=== PATIENT | male | born 1990 | race Caucasian/White ===

== ENCOUNTER 2023-06-13 14:33 | Inpatient (IN) | payer OTHER ==
[~2023-06-13] VITALS: Ht 177.8 cm; Wt 130.2 kg
[2023-06-13 15:23] LABS: BASOPHILS % 0.2 % (0.0-2.0); DIFFERENTIAL COMMENT 0; EOSINOPHILS % 0.6 % (0.0-5.0); HEMATOCRIT. 40.9 % (42.0-52.0); HEMOGLOBIN. 13.2 g/dL (14.0-18.0); MEAN CORPUSCULAR HEMOGLOBIN 24.4 pg (28.0-32.0); MEAN CORPUSCULAR HGB CONC 32.2 g/dL (31.0-37.0); MEAN CORPUSCULAR VOLUME 75.9 fL (80.0-94.0); MEAN PLATELET VOLUME 9.1 fl (7.4-10.4); MONOCYTES % 6.3 % (2.0-8.0); NEUTROPHILS % 78.9 % (40.0-76.0); PLATELET 260 x1000/uL (130-400); RED BLOOD CELL COUNT 5.39 mill/uL (4.7-6.1); RED CELL DISTRIBUTION WIDTH 16.3 % (11.6-14.6); WHITE BLOOD COUNT 15.9 x1000/uL (4.5-11.0)
[2023-06-13 15:30] LABS: CHLORIDE 106 mEq/L (98-107); INDEX HEMOLYSI 1 (1-3); INDEX ICTERIC 1 (1-4); INDEX LIPEMIC 1 (1-3); POTASSIUM 3.7 mEq/L (3.5-5.1); SODIUM 138 mEq/L (136-145)
[2023-06-13 15:39] LABS: ALANINE AMINOTRANSFERASE 19 IU/L (13-61); ALBUMIN 3.1 g/dL (3.4-5.0); ASPARTATE AMINOTRANSFERASE 9 IU/L (15-37); BILIRUBIN TOTAL 0.7 mg/dL (0.1-1.0); CARBON DIOXIDE 25 mEq/L (21-32); CREATININE 0.7 mg/dL (0.6-1.3); GLUCOSE 198 mg/dL (70-105); PROTEIN TOTAL 8.1 g/dL (6.0-8.3); UREA NITROGEN BLOOD 9 mg/dL (7-21)
[2023-06-13 20:48] LABS: CLARITY URINE CLOUDY (CLEAR); COLOR URINE DARK YELLOW (YELLOW); GLUCOSE URINE NEGATIVE (NEGATIVE); KETONES URINE 1+ (NEGATIVE); LEUKOCYTE ESTERASE URINE TRACE (NEGATIVE); NITRITE URINE POSITIVE (NEGATIVE); OCCULT BLOOD URINE NEGATIVE (NEGATIVE); PROTEIN URINE 2+ (NEGATIVE); SPECIFIC GRAVITY URINE 1.037 (1.005-1.030)
[2023-06-13 20:51] LABS: SQUAMOUS EPITHELIAL CELL URINE 2+ /lpf (RARE/1+); YEAST URINE NONE SEEN
[2023-06-13 21:21] LABS: BACTERIA URINE TRACE
[2023-06-13] MEDS ORDERED: PIPERACILLIN/TAZ 3.375G PREMIX 50 ML IV ONE (21:30)
[2023-06-13] MEDS ORDERED: DIATR MEGLU/DIATRIZOATE SOLN 120ML ONE (22:48)
[2023-06-13] MEDS ORDERED: PIPERACILLIN/TAZ 3.375G PREMIX 50 ML IV NR (23:00)
[2023-06-14] VITALS (7 sets, daily range): BP systolic 131–149; BP diastolic 72–83; PULSE 102–108; RESP 16–26; TEMP 98.2–98.9
[2023-06-14] MEDS ORDERED: PIPERACILLIN/TAZ 3.375G PREMIX 50 ML IV SCH (12:30)
[2023-06-14] MEDS: PANTOPRAZOLE SODIUM 40 MG/VIAL IV SCH (14:34)
[2023-06-14] MEDS: SODIUM CHLORIDE 0.9% 1,000 ML IV SCH ×2 (14:34→21:39)
[2023-06-14] MEDS: PIPERACILLIN/TAZOBACTAM 3.375G in DEXT 5% WATER 50ML IV SCH ×2 (14:35→21:39)
[2023-06-14] MEDS: ACETAMINOPHEN 325MG TABLET PO PRN (15:11)
[2023-06-14 15:43] LABS: BASOPHILS % 0.3 % (0.0-2.0); DIFFERENTIAL COMMENT 0; EOSINOPHILS % 0.4 % (0.0-5.0); HEMATOCRIT. 38.6 % (42.0-52.0); HEMOGLOBIN. 12.5 g/dL (14.0-18.0); LYMPHOCYTES % 14.6 % (20.0-50.0); MEAN CORPUSCULAR HGB CONC 32.4 g/dL (31.0-37.0); MEAN CORPUSCULAR VOLUME 77.3 fL (80.0-94.0); MEAN PLATELET VOLUME 9.3 fl (7.4-10.4); MONOCYTES % 6.1 % (2.0-8.0); NEUTROPHILS % 78.6 % (40.0-76.0); PLATELET 256 x1000/uL (130-400); RED BLOOD CELL COUNT 4.99 mill/uL (4.7-6.1); RED CELL DISTRIBUTION WIDTH 16.2 % (11.6-14.6); WHITE BLOOD COUNT 15.9 x1000/uL (4.5-11.0)
[2023-06-14 15:55] LABS: CHLORIDE 105 mEq/L (98-107); INDEX HEMOLYSI 1 (1-3); INDEX ICTERIC 1 (1-4); INDEX LIPEMIC 1 (1-3); POTASSIUM 3.7 mEq/L (3.5-5.1); SODIUM 136 mEq/L (136-145)
[2023-06-14 16:03] LABS: ALANINE AMINOTRANSFERASE 18 IU/L (13-61); ALBUMIN 2.6 g/dL (3.4-5.0); ASPARTATE AMINOTRANSFERASE 12 IU/L (15-37); BILIRUBIN TOTAL 0.6 mg/dL (0.1-1.0); CALCIUM 8.9 mg/dL (8.5-10.1); CARBON DIOXIDE 25 mEq/L (21-32); CREATININE 0.7 mg/dL (0.6-1.3); GLUCOSE 180 mg/dL (70-105); PROTEIN TOTAL 7.7 g/dL (6.0-8.3); UREA NITROGEN BLOOD 9 mg/dL (7-21)
[2023-06-15] VITALS (10 sets, daily range): BP systolic 123–147; BP diastolic 69–86; PULSE 70–104; RESP 16–20; TEMP 97.8–98.4
[2023-06-15] MEDS: ACETAMINOPHEN 325MG TABLET PO PRN ×2 (00:43→02:00)
[2023-06-15] MEDS: SODIUM CHLORIDE 0.9% 1,000 ML IV SCH ×3 (04:49→22:13)
[2023-06-15] MEDS: PIPERACILLIN/TAZOBACTAM 3.375G in DEXT 5% WATER 50ML IV SCH ×3 (05:30→22:12)
[2023-06-15 05:59] LABS: BASOPHILS % 0.3 % (0.0-2.0); DIFFERENTIAL COMMENT 0; EOSINOPHILS % 0.9 % (0.0-5.0); HEMATOCRIT. 36.4 % (42.0-52.0); HEMOGLOBIN. 11.6 g/dL (14.0-18.0); MEAN CORPUSCULAR HEMOGLOBIN 24.7 pg (28.0-32.0); MEAN CORPUSCULAR VOLUME 77.1 fL (80.0-94.0); MEAN PLATELET VOLUME 9.9 fl (7.4-10.4); MONOCYTES % 6.7 % (2.0-8.0); NEUTROPHILS % 79.1 % (40.0-76.0); PLATELET 275 x1000/uL (130-400); RED BLOOD CELL COUNT 4.72 mill/uL (4.7-6.1); RED CELL DISTRIBUTION WIDTH 16.6 % (11.6-14.6); WHITE BLOOD COUNT 14.5 x1000/uL (4.5-11.0)
[2023-06-15 07:07] LABS: CHLORIDE 109 mEq/L (98-107); INDEX HEMOLYSI 1 (1-3); INDEX ICTERIC 1 (1-4); INDEX LIPEMIC 1 (1-3); POTASSIUM 3.7 mEq/L (3.5-5.1); SODIUM 138 mEq/L (136-145)
[2023-06-15 07:15] LABS: ALANINE AMINOTRANSFERASE 18 IU/L (13-61); ALBUMIN 2.3 g/dL (3.4-5.0); ASPARTATE AMINOTRANSFERASE 9 IU/L (15-37); BILIRUBIN TOTAL 0.7 mg/dL (0.1-1.0); CALCIUM 7.8 mg/dL (8.5-10.1); CARBON DIOXIDE 23 mEq/L (21-32); CREATININE 0.7 mg/dL (0.6-1.3); GLUCOSE 152 mg/dL (70-105); PROTEIN TOTAL 7.3 g/dL (6.0-8.3); UREA NITROGEN BLOOD 10 mg/dL (7-21)
[2023-06-15] MEDS: PANTOPRAZOLE SODIUM 40 MG/VIAL IV SCH (08:26)
[2023-06-16] VITALS: BP 141/77; PULSE 93; RESP 18; TEMP 98.9
[2023-06-16 04:00] VITALS: BP 146/82; PULSE 88; RESP 18; TEMP 98.6
[2023-06-16] MEDS: SODIUM CHLORIDE 0.9% 1,000 ML IV SCH ×3 (05:34→21:06)
[2023-06-16] MEDS: PIPERACILLIN/TAZOBACTAM 3.375G in DEXT 5% WATER 50ML IV SCH ×3 (05:34→21:07)
[2023-06-16 08:00] VITALS: BP 156/85; PULSE 95; RESP 20; TEMP 98
[2023-06-16 08:01] LABS: BASOPHILS % 0.4 % (0.0-2.0); DIFFERENTIAL COMMENT 0; EOSINOPHILS % 1.6 % (0.0-5.0); HEMOGLOBIN. 12.2 g/dL (14.0-18.0); LYMPHOCYTES % 16.7 % (20.0-50.0); MEAN CORPUSCULAR HEMOGLOBIN 24.9 pg (28.0-32.0); MEAN PLATELET VOLUME 9.5 fl (7.4-10.4); MONOCYTES % 6.1 % (2.0-8.0); NEUTROPHILS % 75.2 % (40.0-76.0); PLATELET 338 x1000/uL (130-400); RED BLOOD CELL COUNT 4.87 mill/uL (4.7-6.1); RED CELL DISTRIBUTION WIDTH 16.5 % (11.6-14.6); WHITE BLOOD COUNT 13.7 x1000/uL (4.5-11.0)
[2023-06-16 08:38] LABS: CHLORIDE 109 mEq/L (98-107); INDEX HEMOLYSI 1 (1-3); INDEX ICTERIC 1 (1-4); INDEX LIPEMIC 1 (1-3); POTASSIUM 3.9 mEq/L (3.5-5.1); SODIUM 138 mEq/L (136-145)
[2023-06-16 08:47] LABS: ALANINE AMINOTRANSFERASE 33 IU/L (13-61); ALBUMIN 2.4 g/dL (3.4-5.0); ASPARTATE AMINOTRANSFERASE 36 IU/L (15-37); BILIRUBIN TOTAL 0.7 mg/dL (0.1-1.0); CALCIUM 8.7 mg/dL (8.5-10.1); CARBON DIOXIDE 23 mEq/L (21-32); CREATININE 0.7 mg/dL (0.6-1.3); GLUCOSE 122 mg/dL (70-105); PROTEIN TOTAL 7.9 g/dL (6.0-8.3); UREA NITROGEN BLOOD 9 mg/dL (7-21)
[2023-06-16] MEDS: PANTOPRAZOLE SODIUM 40 MG/VIAL IV SCH (09:08)
[2023-06-16 12:00] VITALS: BP 149/87; PULSE 104; RESP 20; TEMP 97.6
[2023-06-16 16:00] VITALS: BP 163/75; PULSE 110; RESP 20; TEMP 97.4
[2023-06-16 20:00] VITALS: BP 150/84; PULSE 129; RESP 21; TEMP 98.2
[2023-06-16] MEDS ORDERED: DIATR MEGLU/DIATRIZOATE SOLN 30ML PO SCH (23:30)
[2023-06-17] VITALS: BP 140/83; PULSE 118; RESP 21; TEMP 97.5
[2023-06-17 04:00] VITALS: BP 142/88; PULSE 103; RESP 19; TEMP 98.5
[2023-06-17] MEDS: SODIUM CHLORIDE 0.9% 1,000 ML IV SCH ×3 (05:37→22:21)
[2023-06-17] MEDS: PIPERACILLIN/TAZOBACTAM 3.375G in DEXT 5% WATER 50ML IV SCH ×3 (05:37→22:21)
[2023-06-17 06:18] LABS: BASOPHILS % 0.3 % (0.0-2.0); DIFFERENTIAL COMMENT 0; EOSINOPHILS % 0.1 % (0.0-5.0); HEMATOCRIT. 39.8 % (42.0-52.0); LYMPHOCYTES % 8.8 % (20.0-50.0); MEAN CORPUSCULAR HEMOGLOBIN 25.1 pg (28.0-32.0); MEAN CORPUSCULAR HGB CONC 32.6 g/dL (31.0-37.0); MEAN PLATELET VOLUME 9.5 fl (7.4-10.4); NEUTROPHILS % 84.8 % (40.0-76.0); PLATELET 377 x1000/uL (130-400); RED BLOOD CELL COUNT 5.17 mill/uL (4.7-6.1); RED CELL DISTRIBUTION WIDTH 16.3 % (11.6-14.6); WHITE BLOOD COUNT 16.2 x1000/uL (4.5-11.0)
[2023-06-17 07:59] LABS: CALCIUM 7.8 mg/dL (8.5-10.1); CARBON DIOXIDE 21 mEq/L (21-32); CHLORIDE 108 mEq/L (98-107); GLUCOSE 160 mg/dL (70-105); INDEX HEMOLYSI 1 (1-3); INDEX ICTERIC 1 (1-4); INDEX LIPEMIC 1 (1-3); POTASSIUM 4.1 mEq/L (3.5-5.1); SODIUM 138 mEq/L (136-145); UREA NITROGEN BLOOD 9 mg/dL (7-21)
[2023-06-17 08:00] VITALS: BP 156/87; PULSE 110; RESP 16; TEMP 97.9
[2023-06-17 08:04] LABS: ALANINE AMINOTRANSFERASE 42 IU/L (13-61); ASPARTATE AMINOTRANSFERASE 27 IU/L (15-37); BILIRUBIN TOTAL 1.3 mg/dL (0.1-1.0); CREATININE 0.7 mg/dL (0.6-1.3); PROTEIN TOTAL 7.2 g/dL (6.0-8.3)
[2023-06-17] MEDS: FAMOTIDINE 20MG TABLET PO SCH ×2 (08:12→20:46)
[2023-06-17] MEDS: ACETAMINOPHEN 325MG TABLET PO PRN (08:13)
[2023-06-17] MEDS: MORPHINE SULFATE 2 MG/ML CPJ (NOT FOR IM USE) IV PRN ×3 (09:48→20:35)
[2023-06-17 12:00] VITALS: BP 170/90; PULSE 119; RESP 18; TEMP 98.4
[2023-06-17] MEDS ORDERED: DIATR MEGLU/DIATRIZOATE SOLN 30ML PO SCH (12:00)
[2023-06-17] MEDS ORDERED: NALOXONE HCL 0.4MG/ML VIAL IV PRN (12:45)
[2023-06-17] MEDS ORDERED: DIATR MEGLU/DIATRIZOATE SOLN 30ML PO ONE (13:30)
[2023-06-17 16:00] VITALS: BP 154/89; PULSE 133; RESP 18; TEMP 98.7
[2023-06-17] MEDS ORDERED: IOHEXOL-300 100 ML BOTTLE ONE (19:26)
[2023-06-17 20:00] VITALS: BP 142/83; PULSE 132; RESP 18; TEMP 99.1
[2023-06-17] MEDS: ENOXAPARIN 40MG/0.4ML SYR SUBCUT SCH (20:46)
[2023-06-17] MEDS: MICAFUNGIN 100 MG in SODIUM CHLORIDE 0.9% 100 ML IV SCH (20:47)
[2023-06-17] MEDS ORDERED: DILTIAZEM HCL 5MG/ML 5ML VIAL IV NR (22:45)
[2023-06-18] VITALS (19 sets, daily range): BP systolic 108–168; BP diastolic 68–96; PULSE 93–146; RESP 18–42; TEMP 96.6–100.4
[2023-06-18] MEDS: MORPHINE SULFATE 2 MG/ML CPJ (NOT FOR IM USE) IV PRN ×4 (00:28→20:23)
[2023-06-18] MEDS ORDERED: ACETAMINOPHEN 650MG SUPP RC PRN (04:15)
[2023-06-18] MEDS: SODIUM CHLORIDE 0.9% 1,000 ML IV SCH ×3 (04:15→20:28)
[2023-06-18] MEDS: PIPERACILLIN/TAZOBACTAM 3.375G in DEXT 5% WATER 50ML IV SCH ×3 (05:09→22:34)
[2023-06-18 05:46] LABS: HEMATOCRIT. 41.2 % (42.0-52.0); HEMOGLOBIN. 13.4 g/dL (14.0-18.0); MEAN CORPUSCULAR HEMOGLOBIN 25.1 pg (28.0-32.0); MEAN CORPUSCULAR HGB CONC 32.6 g/dL (31.0-37.0); MEAN PLATELET VOLUME 9.4 fl (7.4-10.4); PLATELET 405 x1000/uL (130-400); RED BLOOD CELL COUNT 5.35 mill/uL (4.7-6.1); RED CELL DISTRIBUTION WIDTH 16.6 % (11.6-14.6); WHITE BLOOD COUNT 20.1 x1000/uL (4.5-11.0)
[2023-06-18 06:40] LABS: DIFFERENTIAL COMMENT 1
[2023-06-18 07:59] LABS: CHLORIDE 109 mEq/L (98-107); INDEX HEMOLYSI 2 (1-3); INDEX ICTERIC 1 (1-4); INDEX LIPEMIC 1 (1-3); POTASSIUM 3.8 mEq/L (3.5-5.1); SODIUM 137 mEq/L (136-145)
[2023-06-18 08:08] LABS: ALANINE AMINOTRANSFERASE 26 IU/L (13-61); ASPARTATE AMINOTRANSFERASE 15 IU/L (15-37); BILIRUBIN TOTAL 1.4 mg/dL (0.1-1.0); CALCIUM 8.4 mg/dL (8.5-10.1); CARBON DIOXIDE 20 mEq/L (21-32); CREATININE 0.7 mg/dL (0.6-1.3); GLUCOSE 213 mg/dL (70-105); PROTEIN TOTAL 7.2 g/dL (6.0-8.3); UREA NITROGEN BLOOD 11 mg/dL (7-21)
[2023-06-18] MEDS: FAMOTIDINE 20MG TABLET PO SCH ×2 (08:12→20:29)
[2023-06-18] MEDS: ENOXAPARIN 40MG/0.4ML SYR SUBCUT SCH ×2 (08:46→20:30)
[2023-06-18] MEDS ORDERED: SODIUM BICARBONATE 4% (2.4MEQ) 5ML VIAL IV ONE (09:08)
[2023-06-18] MEDS ORDERED: LIDOCAINE HCL 1% 10 MG/ML 10ML VIAL ONE (09:08)
[2023-06-18 09:22] LABS: INR 1.2; PROTHROMBIN TIME 12.8 sec (9.6-11.0)
[2023-06-18 10:19] LABS: ALBUMIN 1.9 g/dL (3.4-5.0)
[2023-06-18] MEDS ORDERED: FENTANYL CITRATE/PF 50MCG/ML 2ML VIAL ONE (13:02)
[2023-06-18] MEDS ORDERED: FENTANYL CITRATE/PF 50MCG/ML 2ML VIAL IV NR (14:30)
[2023-06-18 18:03] LABS: MICROCYTOSIS 1+; PLATELET ESTIMATE INCREASED
[2023-06-18] MEDS: MICAFUNGIN 100 MG in SODIUM CHLORIDE 0.9% 100 ML IV SCH (20:27)
[2023-06-19] VITALS: BP 110/77; PULSE 132; RESP 20; TEMP 100
[2023-06-19] MEDS: MORPHINE SULFATE 2 MG/ML CPJ (NOT FOR IM USE) IV PRN ×4 (01:38→21:14)
[2023-06-19 04:00] VITALS: BP 138/86; PULSE 137; RESP 20; TEMP 99.3
[2023-06-19] MEDS: SODIUM CHLORIDE 0.9% 1,000 ML IV SCH ×4 (04:15→20:40)
[2023-06-19] MEDS: PIPERACILLIN/TAZOBACTAM 3.375G in DEXT 5% WATER 50ML IV SCH (05:13)
[2023-06-19 07:18] LABS: CHLORIDE 109 mEq/L (98-107); INDEX HEMOLYSI 1 (1-3); INDEX ICTERIC 1 (1-4); INDEX LIPEMIC 1 (1-3); SODIUM 139 mEq/L (136-145)
[2023-06-19 07:27] LABS: ALANINE AMINOTRANSFERASE 25 IU/L (13-61); ASPARTATE AMINOTRANSFERASE 20 IU/L (15-37); BILIRUBIN DIRECT 0.9 mg/dL (0.0-0.2); BILIRUBIN TOTAL 1.6 mg/dL (0.1-1.0); CARBON DIOXIDE 24 mEq/L (21-32); GLUCOSE 301 mg/dL (70-105); PHOSPHORUS 1.6 mg/dL (2.5-4.9); UREA NITROGEN BLOOD 23 mg/dL (7-21)
[2023-06-19 07:28] LABS: ALBUMIN 1.7 g/dL (3.4-5.0)
[2023-06-19 07:41] LABS: HEMATOCRIT. 44.2 % (42.0-52.0); HEMOGLOBIN. 14.3 g/dL (14.0-18.0); MEAN CORPUSCULAR HEMOGLOBIN 25.1 pg (28.0-32.0); MEAN CORPUSCULAR HGB CONC 32.5 g/dL (31.0-37.0); MEAN CORPUSCULAR VOLUME 77.3 fL (80.0-94.0); MEAN PLATELET VOLUME 9.1 fl (7.4-10.4); PLATELET 420 x1000/uL (130-400); RED BLOOD CELL COUNT 5.72 mill/uL (4.7-6.1); RED CELL DISTRIBUTION WIDTH 16.7 % (11.6-14.6); WHITE BLOOD COUNT 18.2 x1000/uL (4.5-11.0)
[2023-06-19 08:00] VITALS: BP 137/59; PULSE 87; RESP 18; TEMP 97.3
[2023-06-19 08:18] LABS: DIFFERENTIAL COMMENT 1
[2023-06-19] MEDS: FAMOTIDINE 20MG TABLET PO SCH ×2 (09:00→20:38)
[2023-06-19] MEDS ORDERED: LIDOCAINE HCL 1% 10 MG/ML 10ML VIAL ONE (09:11)
[2023-06-19 11:20] LABS: HEPATITIS B SURFACE ANTIGEN NEGATIVE
[2023-06-19 11:45] LABS: HEPATITIS B CORE AB IGM NEGATIVE; HEPATITIS C VIR.AB 0.06 INDEXVAL (0.00-0.80)
[2023-06-19 11:48] LABS: HEPATITIS A AB IGM NEGATIVE (NEGATIVE)
[2023-06-19 12:00] VITALS: BP 143/84; PULSE 135; RESP 18; TEMP 97.1
[2023-06-19] MEDS: ENOXAPARIN 40MG/0.4ML SYR SUBCUT SCH ×2 (13:27→20:40)
[2023-06-19 13:33] LABS: PLATELET ESTIMATE SLIGHTLY INCREASED
[2023-06-19 13:35] LABS: MICROCYTOSIS 1+
[2023-06-19 13:46] LABS: PREALBUMIN < 3.0 mg/dL (20.0-40.0)
[2023-06-19 16:00] VITALS: BP 155/93; PULSE 131; RESP 16; TEMP 97.3
[2023-06-19 20:00] VITALS: BP 137/90; PULSE 134; RESP 20; TEMP 97.6
[2023-06-19] MEDS: MICAFUNGIN 100 MG in SODIUM CHLORIDE 0.9% 100 ML IV SCH (20:39)
[2023-06-20] VITALS: BP 151/81; PULSE 125; RESP 20; TEMP 97.7
[2023-06-20 04:00] VITALS: BP 137/83; PULSE 133; RESP 20; TEMP 97.8
[2023-06-20] MEDS: CEFEPIME 2,000 MG in DEXT 5% WATER 100 ML IV SCH ×2 (05:10→12:19)
[2023-06-20] MEDS: SODIUM CHLORIDE 0.9% 1,000 ML IV SCH ×3 (05:29→20:30)
[2023-06-20] MEDS: VANCOMYCIN 2,000 MG in DEXT 5% WATER 500 ML IV SCH ×2 (05:30→08:42)
[2023-06-20 07:25] LABS: HEMATOCRIT. 39.9 % (42.0-52.0); HEMOGLOBIN. 12.4 g/dL (14.0-18.0); MEAN CORPUSCULAR HEMOGLOBIN 24.3 pg (28.0-32.0); MEAN CORPUSCULAR HGB CONC 31.1 g/dL (31.0-37.0); MEAN CORPUSCULAR VOLUME 78.3 fL (80.0-94.0); MEAN PLATELET VOLUME 10.5 fl (7.4-10.4); PLATELET 384 x1000/uL (130-400); RED CELL DISTRIBUTION WIDTH 17.6 % (11.6-14.6); WHITE BLOOD COUNT 22.1 x1000/uL (4.5-11.0)
[2023-06-20 07:47] LABS: DIFFERENTIAL COMMENT 1
[2023-06-20 08:00] VITALS: BP 152/70; PULSE 145; RESP 20; TEMP 97.6
[2023-06-20] MEDS: ENOXAPARIN 40MG/0.4ML SYR SUBCUT SCH ×2 (08:43→20:33)
[2023-06-20] MEDS: FAMOTIDINE 20MG TABLET PO SCH ×2 (08:43→21:00)
[2023-06-20] MEDS ORDERED: DEXTROSE 50% WATER 50ML SYRINGE IV PRN (11:00)
[2023-06-20 12:00] VITALS: BP 148/90; PULSE 145; RESP 18; TEMP 97.2
[2023-06-20] MEDS: BLOOD SUGAR DIAGNOSTIC STRIP TEST SCH ×3 (12:19→20:34)
[2023-06-20 12:32] LABS: CHLORIDE 108 mEq/L (98-107); INDEX HEMOLYSI 1 (1-3); INDEX ICTERIC 1 (1-4); INDEX LIPEMIC 1 (1-3); POTASSIUM 4.5 mEq/L (3.5-5.1); SODIUM 137 mEq/L (136-145)
[2023-06-20 12:39] LABS: CALCIUM 8.2 mg/dL (8.5-10.1); CARBON DIOXIDE 22 mEq/L (21-32); PHOSPHORUS 1.4 mg/dL (2.5-4.9); UREA NITROGEN BLOOD 33 mg/dL (7-21)
[2023-06-20] MEDS: INSULIN LISPRO 100 UNITS/ML SUBCUT SCH ×3 (12:39→20:34)
[2023-06-20] MEDS ORDERED: DILTIAZEM HCL 5MG/ML 5ML VIAL IV NR (13:30)
[2023-06-20 14:22] LABS: GLUCOSE 419 mg/dL (70-105)
[2023-06-20 14:24] LABS: ANISOCYTOSIS 1+; MICROCYTOSIS 1+; PLATELET ESTIMATE NORMAL
[2023-06-20 16:00] VITALS: BP 135/75; PULSE 138; RESP 18; TEMP 97.5
[2023-06-20 16:50] LABS: *AMPHETAMINES SCREEN URINE NEGATIVE (NEGATIVE); *BARBITURATES SCREEN URINE NEGATIVE (NEGATIVE); *BENZODIAZEPINES SCREEN URINE NEGATIVE (NEGATIVE); *COCAINE SCREEN URINE NEGATIVE (NEGATIVE); CANNABINOID URINE SCREEN NEGATIVE (NEGATIVE); ECSTASY MDMA SCREEN URINE NEGATIVE (NEGATIVE); OPIATES URINE SCREEN PRESUMTIVE POSITIVE (NEGATIVE); PHENCYCLIDINE URINE SCREEN NEGATIVE (NEGATIVE)
[2023-06-20 17:01] LABS: METHADONE URINE SCREEN INVALID (NEGATIVE)
[2023-06-20] MEDS ORDERED: INSULIN LISPRO 100 UNITS/ML SUBCUT NR (17:30)
[2023-06-20 17:48] LABS: T4 FREE 0.95 ng/dL (0.76-1.46)
[2023-06-20 19:55] LABS: CHLORIDE 109 mEq/L (98-107); INDEX HEMOLYSI 1 (1-3); INDEX ICTERIC 1 (1-4); INDEX LIPEMIC 1 (1-3); POTASSIUM 4.6 mEq/L (3.5-5.1); SODIUM 138 mEq/L (136-145)
[2023-06-20 19:57] LABS: CARBON DIOXIDE 23 mEq/L (21-32)
[2023-06-20 20:00] VITALS: BP 140/92; PULSE 134; RESP 20; TEMP 97.3
[2023-06-20 20:00] LABS: UREA NITROGEN BLOOD 37 mg/dL (7-21)
[2023-06-20 20:03] LABS: BETA HYDROXYBUTYRATE 0.4 mMol/L (0.0-0.3); CREATININE 1.3 mg/dL (0.6-1.3)
[2023-06-20 20:25] LABS: GLUCOSE 406 mg/dL (70-105)
[2023-06-20] MEDS: MICAFUNGIN 100 MG in SODIUM CHLORIDE 0.9% 100 ML IV SCH (20:30)
[2023-06-20] MEDS: METOPROLOL TARTRATE 50MG TABLET PO SCH (21:00)
[2023-06-20] MEDS: METOPROLOL TARTRATE 5MG/5ML VIAL IV PRN (21:17)
[2023-06-20] MEDS: AMPICILLIN SOD/SULBACTAM NA 3 G in SODIUM CHLORIDE 0.9% 100 ML IV SCH (21:41)
[2023-06-21] VITALS: BP 145/76; PULSE 122; RESP 20; TEMP 97.6
[2023-06-21] MEDS: AMPICILLIN SOD/SULBACTAM NA 3 G in SODIUM CHLORIDE 0.9% 100 ML IV SCH ×4 (01:53→20:44)
[2023-06-21] MEDS: METOPROLOL TARTRATE 5MG/5ML VIAL IV PRN ×4 (01:54→16:50)
[2023-06-21] MEDS: MORPHINE SULFATE 2 MG/ML CPJ (NOT FOR IM USE) IV PRN (02:03)
[2023-06-21 04:00] VITALS: BP 136/77; PULSE 109; RESP 18; TEMP 97.7
[2023-06-21] MEDS: BLOOD SUGAR DIAGNOSTIC STRIP TEST SCH ×4 (05:32→20:31)
[2023-06-21] MEDS: INSULIN LISPRO 100 UNITS/ML SUBCUT SCH ×5 (05:59→20:43)
[2023-06-21] MEDS: ONDANSETRON HCL 4MG/2ML INJ IV PRN (06:09)
[2023-06-21 06:39] LABS: HEMATOCRIT. 36.9 % (42.0-52.0); HEMOGLOBIN. 11.7 g/dL (14.0-18.0); MEAN CORPUSCULAR HEMOGLOBIN 24.3 pg (28.0-32.0); MEAN CORPUSCULAR HGB CONC 31.8 g/dL (31.0-37.0); MEAN CORPUSCULAR VOLUME 76.3 fL (80.0-94.0); MEAN PLATELET VOLUME 10.1 fl (7.4-10.4); PLATELET 345 x1000/uL (130-400); RED BLOOD CELL COUNT 4.84 mill/uL (4.7-6.1); RED CELL DISTRIBUTION WIDTH 17.1 % (11.6-14.6)
[2023-06-21 07:00] LABS: DIFFERENTIAL COMMENT 1
[2023-06-21 07:12] LABS: CHLORIDE 113 mEq/L (98-107); INDEX HEMOLYSI 1 (1-3); INDEX ICTERIC 1 (1-4); INDEX LIPEMIC 1 (1-3); POTASSIUM 4.6 mEq/L (3.5-5.1); SODIUM 142 mEq/L (136-145)
[2023-06-21 07:28] LABS: CARBON DIOXIDE 22 mEq/L (21-32); CREATININE 1.3 mg/dL (0.6-1.3); GLUCOSE 344 mg/dL (70-105); UREA NITROGEN BLOOD 37 mg/dL (7-21)
[2023-06-21 08:00] VITALS: BP 150/90; PULSE 134; RESP 20; TEMP 97.8
[2023-06-21] MEDS ORDERED: IOHEXOL-350 100 ML BOTTLE ONE (08:35)
[2023-06-21] MEDS ORDERED: IOHEXOL-300 50 ML BOTTLE IV ONE (08:35)
[2023-06-21] MEDS: FAMOTIDINE 20MG TABLET PO SCH ×2 (09:00→20:44)
[2023-06-21] MEDS: METOPROLOL TARTRATE 50MG TABLET PO SCH ×2 (09:00→20:44)
[2023-06-21] MEDS: ENOXAPARIN 40MG/0.4ML SYR SUBCUT SCH ×2 (09:23→20:43)
[2023-06-21] MEDS ORDERED: METOPROLOL TARTRATE 50MG TABLET PO SCH (10:15)
[2023-06-21 10:46] LABS: CLARITY URINE TURBID (CLEAR); COLOR URINE DARK YELLOW (YELLOW); GLUCOSE URINE 3+ (NEGATIVE); KETONES URINE TRACE (NEGATIVE); LEUKOCYTE ESTERASE URINE NEGATIVE (NEGATIVE); NITRITE URINE NEGATIVE (NEGATIVE); OCCULT BLOOD URINE 1+ (NEGATIVE); PROTEIN URINE 2+ (NEGATIVE); SPECIFIC GRAVITY URINE 1.035 (1.005-1.030)
[2023-06-21 11:09] LABS: COARSE GRANULAR CASTS URINE 0-5 /lpf; SQUAMOUS EPITHELIAL CELL URINE 1+ /lpf (RARE/1+); WBC URINE 0-2 /hpf (0-2)
[2023-06-21 11:10] LABS: BACTERIA URINE 2+; RBC URINE 0-2 /hpf (0-2)
[2023-06-21 12:00] VITALS: BP 141/78; PULSE 124; RESP 20; TEMP 97.2
[2023-06-21 16:00] VITALS: BP 135/88; PULSE 139; RESP 20; TEMP 97.8
[2023-06-21] MEDS: DEXT 5%/0.9% NACL KCL 20MEQ/L 1,000 ML IV SCH (16:50)
[2023-06-21 17:36] LABS: MICROCYTOSIS 1+
[2023-06-21 17:37] LABS: HYPOCHROMASIA 1+
[2023-06-21 17:38] LABS: PLATELET ESTIMATE NORMAL
[2023-06-21 20:00] VITALS: BP 156/91; PULSE 139; RESP 20; TEMP 97.2
[2023-06-21] MEDS: MICAFUNGIN 100 MG in SODIUM CHLORIDE 0.9% 100 ML IV SCH (20:44)
[2023-06-21] MEDS ORDERED: INSULIN GLARGINE 100 UNITS/ML SUBCUT SCH (22:00)
[2023-06-22] VITALS (16 sets, daily range): BP systolic 122–151; BP diastolic 70–84; PULSE 108–138; RESP 18–26; TEMP 97.5–98
[2023-06-22] MEDS: INSULIN LISPRO 100 UNITS/ML SUBCUT SCH ×7 (00:41→21:49)
[2023-06-22] MEDS: AMPICILLIN SOD/SULBACTAM NA 3 G in SODIUM CHLORIDE 0.9% 100 ML IV SCH ×2 (02:38→10:00)
[2023-06-22] MEDS: DEXT 5%/0.9% NACL KCL 20MEQ/L 1,000 ML IV SCH ×2 (06:24→20:37)
[2023-06-22] MEDS: BLOOD SUGAR DIAGNOSTIC STRIP TEST SCH ×4 (06:51→21:07)
[2023-06-22 07:21] LABS: HEMATOCRIT. 35.2 % (42.0-52.0); HEMOGLOBIN. 11.2 g/dL (14.0-18.0); MEAN CORPUSCULAR HEMOGLOBIN 24.6 pg (28.0-32.0); MEAN CORPUSCULAR HGB CONC 31.8 g/dL (31.0-37.0); MEAN CORPUSCULAR VOLUME 77.2 fL (80.0-94.0); MEAN PLATELET VOLUME 11.1 fl (7.4-10.4); PLATELET 273 x1000/uL (130-400); RED BLOOD CELL COUNT 4.55 mill/uL (4.7-6.1); WHITE BLOOD COUNT 17.4 x1000/uL (4.5-11.0)
[2023-06-22 07:34] LABS: DIFFERENTIAL COMMENT 1
[2023-06-22 07:48] LABS: POTASSIUM 4.9 mEq/L (3.5-5.1)
[2023-06-22 07:58] LABS: CALCIUM 7.6 mg/dL (8.5-10.1); CREATININE 1.5 mg/dL (0.6-1.3); PHOSPHORUS 2.8 mg/dL (2.5-4.9)
[2023-06-22] MEDS: METOPROLOL TARTRATE 50MG TABLET PO SCH ×2 (09:35→21:47)
[2023-06-22] MEDS: FAMOTIDINE 20MG TABLET PO SCH ×2 (09:35→21:47)
[2023-06-22] MEDS: ENOXAPARIN 40MG/0.4ML SYR SUBCUT SCH ×2 (09:48→21:48)
[2023-06-22] MEDS: INSULIN GLARGINE 100 UNITS/ML SUBCUT SCH ×2 (12:15→21:50)
[2023-06-22 12:19] LABS: ANISOCYTOSIS 1+; PLATELET ESTIMATE NORMAL
[2023-06-22 12:20] LABS: MICROCYTOSIS 1+
[2023-06-22] MEDS ORDERED: LIDOCAINE HCL 1% 10 MG/ML 10ML VIAL ONE (12:40)
[2023-06-22] MEDS ORDERED: FENTANYL CITRATE/PF 50MCG/ML 2ML VIAL ONE (13:11)
[2023-06-22] MEDS ORDERED: FENTANYL CITRATE/PF 50MCG/ML 2ML VIAL IV ONE (13:45)
[2023-06-22] MEDS: PIPERACILLIN/TAZOBACTAM 3.375 G in DEXTROSE 5% WATER 50 ML IV SCH ×2 (16:50→23:06)
[2023-06-22] MEDS: MICAFUNGIN 100 MG in SODIUM CHLORIDE 0.9% 100 ML IV SCH (21:45)
[2023-06-23] VITALS: BP 129/77; PULSE 107; RESP 18; TEMP 98.1
[2023-06-23] MEDS: MORPHINE SULFATE 2 MG/ML CPJ (NOT FOR IM USE) IV PRN ×2 (00:51→12:34)
[2023-06-23] MEDS: INSULIN LISPRO 100 UNITS/ML SUBCUT SCH ×7 (00:59→22:38)
[2023-06-23 04:00] VITALS: BP 132/81; PULSE 106; RESP 18; TEMP 97.7
[2023-06-23 05:38] LABS: BASOPHILS % 0.2 % (0.0-2.0); DIFFERENTIAL COMMENT 0; HEMATOCRIT. 33.1 % (42.0-52.0); HEMOGLOBIN. 10.4 g/dL (14.0-18.0); LYMPHOCYTES % 7.1 % (20.0-50.0); MEAN CORPUSCULAR HEMOGLOBIN 24.3 pg (28.0-32.0); MEAN CORPUSCULAR HGB CONC 31.5 g/dL (31.0-37.0); MEAN CORPUSCULAR VOLUME 77.3 fL (80.0-94.0); MEAN PLATELET VOLUME 11.1 fl (7.4-10.4); MONOCYTES % 9.1 % (2.0-8.0); NEUTROPHILS % 83.6 % (40.0-76.0); PLATELET 286 x1000/uL (130-400); RED BLOOD CELL COUNT 4.28 mill/uL (4.7-6.1); RED CELL DISTRIBUTION WIDTH 17.3 % (11.6-14.6); WHITE BLOOD COUNT 12.9 x1000/uL (4.5-11.0)
[2023-06-23] MEDS: BLOOD SUGAR DIAGNOSTIC STRIP TEST SCH ×4 (06:37→21:00)
[2023-06-23] MEDS: PIPERACILLIN/TAZOBACTAM 3.375 G in DEXTROSE 5% WATER 50 ML IV SCH ×3 (06:48→22:00)
[2023-06-23 07:04] LABS: POTASSIUM 4.7 mEq/L (3.5-5.1)
[2023-06-23 07:11] LABS: CALCIUM 7.5 mg/dL (8.5-10.1); CREATININE 1.6 mg/dL (0.6-1.3)
[2023-06-23] MEDS: FAMOTIDINE 20MG TABLET PO SCH ×2 (09:29→22:34)
[2023-06-23] MEDS: INSULIN GLARGINE 100 UNITS/ML SUBCUT SCH ×2 (09:30→22:39)
[2023-06-23] MEDS: ENOXAPARIN 40MG/0.4ML SYR SUBCUT SCH ×2 (09:30→22:35)
[2023-06-23] MEDS: DEXT 5%/0.9% NACL KCL 20MEQ/L 1,000 ML IV SCH ×2 (09:31→22:35)
[2023-06-23] MEDS: METOPROLOL TARTRATE 50MG TABLET PO SCH (09:33)
[2023-06-23 12:00] VITALS: BP 135/65; PULSE 118; RESP 22; TEMP 102.7
[2023-06-23] MEDS: ACETAMINOPHEN 325MG TABLET PO PRN ×2 (12:35→22:33)
[2023-06-23 16:00] VITALS: BP 135/55; PULSE 119; RESP 18; TEMP 99.5
[2023-06-23] MEDS: ONDANSETRON HCL 4MG/2ML INJ IV PRN (17:04)
[2023-06-23] MEDS ORDERED: NALOXONE HCL 0.4MG/ML VIAL IV PRN (18:30)
[2023-06-23 20:00] VITALS: BP 118/73; PULSE 121; RESP 20; TEMP 97.7
[2023-06-23] MEDS: METOPROLOL TARTRATE 100MG TABLET PO SCH (22:36)
[2023-06-24] VITALS (23 sets, daily range): BP systolic 105–139; BP diastolic 46–89; PULSE 106–126; RESP 15–48; TEMP 96.9–100.2
[2023-06-24] MEDS: ONDANSETRON HCL 4MG/2ML INJ IV PRN ×3 (01:59→13:06)
[2023-06-24] MEDS: MORPHINE SULFATE 2 MG/ML CPJ (NOT FOR IM USE) IV PRN (05:31)
[2023-06-24] MEDS: PIPERACILLIN/TAZOBACTAM 3.375 G in DEXTROSE 5% WATER 50 ML IV SCH ×2 (06:00→14:00)
[2023-06-24 06:11] LABS: HEMATOCRIT. 33.8 % (42.0-52.0); HEMOGLOBIN. 10.7 g/dL (14.0-18.0); MEAN CORPUSCULAR HEMOGLOBIN 24.4 pg (28.0-32.0); MEAN CORPUSCULAR HGB CONC 31.7 g/dL (31.0-37.0); MEAN PLATELET VOLUME 12.1 fl (7.4-10.4); PLATELET 373 x1000/uL (130-400); RED BLOOD CELL COUNT 4.39 mill/uL (4.7-6.1); RED CELL DISTRIBUTION WIDTH 17.4 % (11.6-14.6); WHITE BLOOD COUNT 21.7 x1000/uL (4.5-11.0)
[2023-06-24 06:18] LABS: POTASSIUM 5.4 mEq/L (3.5-5.1)
[2023-06-24 06:28] LABS: CALCIUM 7.4 mg/dL (8.5-10.1); CREATININE 3.3 mg/dL (0.6-1.3)
[2023-06-24 06:41] LABS: DIFFERENTIAL COMMENT 1
[2023-06-24] MEDS: BLOOD SUGAR DIAGNOSTIC STRIP TEST SCH ×4 (07:45→21:00)
[2023-06-24] MEDS: FAMOTIDINE 20MG TABLET PO SCH ×2 (09:24→21:36)
[2023-06-24] MEDS: ENOXAPARIN 40MG/0.4ML SYR SUBCUT SCH ×2 (09:24→21:36)
[2023-06-24] MEDS: METOPROLOL TARTRATE 100MG TABLET PO SCH ×2 (09:26→21:36)
[2023-06-24] MEDS: INSULIN LISPRO 100 UNITS/ML SUBCUT SCH ×7 (09:27→22:04)
[2023-06-24] MEDS ORDERED: SODIUM POLYSTYRENE SULFONATE 15 G/60 ML BOT PO NR (09:30)
[2023-06-24] MEDS ORDERED: DIATR MEGLU/DIATRIZOATE SOLN 30ML PO SCH (09:45)
[2023-06-24] MEDS: SODIUM CHLORIDE 0.45% 1,000 ML IV SCH ×2 (11:08→22:10)
[2023-06-24] MEDS: INSULIN GLARGINE 100 UNITS/ML SUBCUT SCH ×2 (11:24→22:24)
[2023-06-24 12:07] LABS: INDEX HEMOLYSI 1 (1-3)
[2023-06-24 12:27] LABS: CREATINE KINASE 2001 IU/L (39-308)
[2023-06-24] MEDS: SODIUM BICARBONATE 650 MG TABLET PO SCH ×2 (13:06→17:00)
[2023-06-24 14:40] LABS: ANISOCYTOSIS 1+; NUCLEATED RED BLOOD CELLS 2 /100 WBC; PLATELET ESTIMATE NORMAL
[2023-06-24 14:41] LABS: MICROCYTOSIS 1+
[2023-06-24] MEDS ORDERED: METOCLOPRAMIDE HCL 10MG/2ML VIAL IV NR (14:45)
[2023-06-24 18:36] LABS: BG BASE EXCESS -10.1 mmol/L (-2.0-2.0); BG CARBOXYHEMOGLOBIN 0.7 % (0.5-1.5); BG DEOXYHEMOGLOBIN 5.6 % (0.0-5.0); BG FRACTION INSPIRED OXYGEN 32; BG HCO3 ACT 13.7 mmol/L (22.0-26.0); BG METHEMOGLOBIN 0.3 % (0.0-1.5); BG OXYGEN SATURATION 94.3 % (92.0-98.5); BG OXYHEMOGLOBIN 93.4 % (94.0-97.0); BG PH 7.358 (7.350-7.450); BG PO2 73.8 mmHg (75.0-100.0); BG SAMPLE SITE RIGHT RADIAL; BG TOTAL HEMOGLOBIN 11.9 g/dL (12.0-18.0); BG VENT MODE NASAL CANNULA
[2023-06-24] MEDS: MEROPENEM 1,000 MG in SODIUM CHLORIDE 0.9% 100 ML IV SCH (19:16)
[2023-06-24] MEDS ORDERED: SODIUM BICARBONATE 8.4% 1 MEQ/ML 50ML SYR IV NR (20:00)
[2023-06-25] VITALS (60 sets, daily range): BP systolic 84–135; BP diastolic 27–122; PULSE 94–134; RESP 13–44; TEMP 98–102.9
[2023-06-25] MEDS: ACETAMINOPHEN 325MG TABLET PO PRN (00:03)
[2023-06-25] MEDS: SODIUM BICARBONATE 100 MEQ in SODIUM CHLORIDE 0.45% 1,000 ML IV SCH ×3 (01:23→17:55)
[2023-06-25] MEDS: MEROPENEM 1,000 MG in SODIUM CHLORIDE 0.9% 100 ML IV SCH (02:20)
[2023-06-25 03:49] LABS: HEMATOCRIT. 32.6 % (42.0-52.0); HEMOGLOBIN. 10.3 g/dL (14.0-18.0); MEAN CORPUSCULAR HEMOGLOBIN 24.4 pg (28.0-32.0); MEAN CORPUSCULAR HGB CONC 31.5 g/dL (31.0-37.0); MEAN CORPUSCULAR VOLUME 77.5 fL (80.0-94.0); MEAN PLATELET VOLUME 11.5 fl (7.4-10.4); PLATELET 444 x1000/uL (130-400); RED BLOOD CELL COUNT 4.21 mill/uL (4.7-6.1); RED CELL DISTRIBUTION WIDTH 17.7 % (11.6-14.6); WHITE BLOOD COUNT 24.4 x1000/uL (4.5-11.0)
[2023-06-25 03:56] LABS: POTASSIUM 6.1 mEq/L (3.5-5.1)
[2023-06-25 04:07] LABS: CREATININE 5.3 mg/dL (0.6-1.3)
[2023-06-25 04:15] LABS: DIFFERENTIAL COMMENT 1
[2023-06-25] MEDS ORDERED: INSULIN REGULAR (HUMULIN R) 300UNITS/3ML VIAL IV NR (05:34)
[2023-06-25] MEDS ORDERED: DEXTROSE 50% WATER 50ML SYRINGE IV NR (05:34)
[2023-06-25] MEDS ORDERED: SODIUM POLYSTYRENE SULFONATE 15 G/60 ML BOT PO NR (05:45)
[2023-06-25 06:48] LABS: BG BASE EXCESS -8.2 mmol/L (-2.0-2.0); BG CARBOXYHEMOGLOBIN 0.4 % (0.5-1.5); BG FRACTION INSPIRED OXYGEN 100; BG HCO3 ACT 16.7 mmol/L (22.0-26.0); BG OXYHEMOGLOBIN 97.6 % (94.0-97.0); BG PCO2 31.9 mmHg (35.0-45.0); BG PH 7.336 (7.350-7.450); BG PO2 112.3 mmHg (75.0-100.0); BG SAMPLE SITE LEFT RADIAL; BG TOTAL HEMOGLOBIN 10.6 g/dL (12.0-18.0); BG VENT MODE MASK - NRB
[2023-06-25] MEDS ORDERED: CALCIUM CHLORIDE 1,000 MG in DEXT 5% WATER 90 ML IV NR (07:00)
[2023-06-25] MEDS ORDERED: SODIUM BICARBONATE 8.4% 1 MEQ/ML 50ML SYR IV NR (07:15)
[2023-06-25] MEDS: BLOOD SUGAR DIAGNOSTIC STRIP TEST SCH ×4 (07:52→21:00)
[2023-06-25] MEDS: METOPROLOL TARTRATE 100MG TABLET PO SCH ×2 (08:06→21:00)
[2023-06-25 08:15] LABS: ANISOCYTOSIS 1+; PLATELET ESTIMATE INCREASED
[2023-06-25] MEDS ORDERED: BUPIVACAINE HCL/PF 0.5% (5MG/ML) 10ML ONE (08:34)
[2023-06-25] MEDS: ENOXAPARIN 40MG/0.4ML SYR SUBCUT SCH (08:44)
[2023-06-25] MEDS: PANTOPRAZOLE SODIUM 40 MG/VIAL IV SCH ×2 (08:47→17:55)
[2023-06-25] MEDS: INSULIN LISPRO 100 UNITS/ML SUBCUT SCH ×7 (08:48→21:00)
[2023-06-25] MEDS: INSULIN GLARGINE 100 UNITS/ML SUBCUT SCH ×2 (11:37→23:20)
[2023-06-25] MEDS ORDERED: LIDOCAINE HCL 1% 10 MG/ML 10ML VIAL ONE (12:20)
[2023-06-25 12:43] LABS: LACTIC ACID 4.1 mmol/L (0.4-2.0)
[2023-06-25] MEDS ORDERED: ROCURONIUM BROMIDE 10MG/ML VIAL 5ML IV ONE (12:57)
[2023-06-25] MEDS ORDERED: ALBUMIN HUMAN 12.5G/250ML (5%) IV ONE ×2 (13:44→14:45)
[2023-06-25] MEDS ORDERED: PHENYLEPHRINE HCL 10 MG/ML 1ML (IV VIAL) IV ONE ×3 (13:46→14:42)
[2023-06-25] MEDS ORDERED: PHENYLEPHRINE HCL 1% ONE (14:40)
[2023-06-25] MEDS ORDERED: VECURONIUM BROMIDE 10 MG/VIAL IV ONE (14:46)
[2023-06-25 15:03] LABS: HEPATITIS B SURFACE ANTIGEN NEGATIVE
[2023-06-25 15:31] LABS: HEPATITIS C VIR.AB 0.07 INDEXVAL (0.00-0.80)
[2023-06-25 15:32] LABS: HEPATITIS B CORE AB IGM NEGATIVE
[2023-06-25 15:33] LABS: HEPATITIS A AB IGM NEGATIVE (NEGATIVE)
[2023-06-25] MEDS ORDERED: MIDAZOLAM HCL 2 MG/2 ML VIAL ONE (16:08)
[2023-06-25] MEDS ORDERED: HEPARIN 1000 UNITS/ML 10ML ONE (16:41)
[2023-06-25] MEDS: NOREPINEPHRINE 8MG/250ML PMX 250ML IV PRN ×2 (17:39→21:48)
[2023-06-25 17:59] LABS: INDEX HEMOLYSI 2 (1-3); INDEX ICTERIC 1 (1-4); INDEX LIPEMIC 1 (1-3)
[2023-06-25 18:01] LABS: BG BASE EXCESS -11.4 mmol/L (-2.0-2.0); BG CARBOXYHEMOGLOBIN 0.6 % (0.5-1.5); BG DEOXYHEMOGLOBIN 0.8 % (0.0-5.0); BG FRACTION INSPIRED OXYGEN 100; BG HCO3 ACT 15.8 mmol/L (22.0-26.0); BG METHEMOGLOBIN 0.2 % (0.0-1.5); BG OXYGEN SATURATION 99.2 % (92.0-98.5); BG OXYHEMOGLOBIN 98.4 % (94.0-97.0); BG PCO2 41.7 mmHg (35.0-45.0); BG PH 7.197 (7.350-7.450); BG PO2 253.6 mmHg (75.0-100.0); BG SAMPLE SITE RIGHT RADIAL; BG TOTAL HEMOGLOBIN 8.3 g/dL (12.0-18.0); BG VENT MODE VENT - AC
[2023-06-25 18:03] LABS: IRON 15 ug/dL (50-175); TOTAL IRON BINDING CAPACITY 157 ug/dL (250-450)
[2023-06-25 18:18] LABS: FOLIC ACID (FOLATE) SERUM > 20.00 ng/mL (>5.38)
[2023-06-25 18:35] LABS: FERRITIN 1040 ng/mL (22-322)
[2023-06-25] MEDS: SODIUM BICARBONATE 8.4% 1 MEQ/ML 50ML SYR IV NR (18:49)
[2023-06-25] MEDS ORDERED: FENTANYL 2500MCG/250ML PMX 250 ML IV PRN (20:30)
[2023-06-25] MEDS ORDERED: PHENYLEPHRINE 50 MG in DEXT 5% WATER 245 ML IV PRN (21:45)
[2023-06-25] MEDS: PROPOFOL 10MG/ML 100ML 100 ML IV PRN (21:49)
[2023-06-25] MEDS: FENTANYL CITRATE 2,500 MCG in SODIUM CHLORIDE 0.9% 200 ML IV PRN (21:59)
[2023-06-25 23:52] LABS: BG BASE EXCESS -5.3 mmol/L (-2.0-2.0); BG CARBOXYHEMOGLOBIN 0.2 % (0.5-1.5); BG DEOXYHEMOGLOBIN 1.4 % (0.0-5.0); BG FRACTION INSPIRED OXYGEN 50; BG HCO3 ACT 19.8 mmol/L (22.0-26.0); BG METHEMOGLOBIN 0.3 % (0.0-1.5); BG OXYGEN SATURATION 98.6 % (92.0-98.5); BG OXYHEMOGLOBIN 98.1 % (94.0-97.0); BG PCO2 37.2 mmHg (35.0-45.0); BG PH 7.345 (7.350-7.450); BG PO2 161.4 mmHg (75.0-100.0); BG SAMPLE SITE LEFT RADIAL; BG TOTAL HEMOGLOBIN 9.4 g/dL (12.0-18.0); BG VENT MODE VENT - AC
[2023-06-26] VITALS (89 sets, daily range): BP systolic 59–146; BP diastolic 22–86; PULSE 101–129; RESP 17–32; TEMP 98.5–103.1
[2023-06-26 03:32] LABS: BG BASE EXCESS -5.3 mmol/L (-2.0-2.0); BG CARBOXYHEMOGLOBIN 0.2 % (0.5-1.5); BG DEOXYHEMOGLOBIN 1.6 % (0.0-5.0); BG FRACTION INSPIRED OXYGEN 50; BG HCO3 ACT 19.6 mmol/L (22.0-26.0); BG METHEMOGLOBIN 0.3 % (0.0-1.5); BG OXYGEN SATURATION 98.4 % (92.0-98.5); BG OXYHEMOGLOBIN 97.9 % (94.0-97.0); BG PCO2 35.6 mmHg (35.0-45.0); BG PH 7.358 (7.350-7.450); BG PO2 140.8 mmHg (75.0-100.0); BG SAMPLE SITE LEFT RADIAL; BG TOTAL HEMOGLOBIN 10.2 g/dL (12.0-18.0); BG VENT MODE VENT - AC
[2023-06-26] MEDS: NOREPINEPHRINE 32 MG in DEXT 5% WATER 218 ML IV PRN ×2 (05:18→15:05)
[2023-06-26] MEDS: PROPOFOL 10MG/ML 100ML 100 ML IV PRN ×3 (05:19→19:08)
[2023-06-26] MEDS: SODIUM BICARBONATE 100 MEQ in SODIUM CHLORIDE 0.45% 1,000 ML IV SCH ×3 (05:22→21:40)
[2023-06-26 06:10] LABS: HEMATOCRIT. 25.2 % (42.0-52.0); HEMOGLOBIN. 7.7 g/dL (14.0-18.0); MEAN CORPUSCULAR HEMOGLOBIN 23.1 pg (28.0-32.0); MEAN CORPUSCULAR HGB CONC 30.5 g/dL (31.0-37.0); MEAN CORPUSCULAR VOLUME 75.7 fL (80.0-94.0); MEAN PLATELET VOLUME 11.4 fl (7.4-10.4); PLATELET 387 x1000/uL (130-400); RED BLOOD CELL COUNT 3.33 mill/uL (4.7-6.1); RED CELL DISTRIBUTION WIDTH 17.1 % (11.6-14.6); WHITE BLOOD COUNT 16.6 x1000/uL (4.5-11.0)
[2023-06-26] MEDS: MEROPENEM 1,000 MG in SODIUM CHLORIDE 0.9% 100 ML IV SCH (06:26)
[2023-06-26 06:32] LABS: POTASSIUM 6.1 mEq/L (3.5-5.1)
[2023-06-26] MEDS ORDERED: LIDOCAINE HCL 1% 10 MG/ML 10ML VIAL ONE (07:03)
[2023-06-26] MEDS ORDERED: ALBUMIN HUMAN 25GM/100ML (25%) IV NR (07:15)
[2023-06-26 07:16] LABS: CREATININE 6.1 mg/dL (0.6-1.3)
[2023-06-26 07:18] LABS: CALCIUM 5.8 mg/dL (8.5-10.1)
[2023-06-26] MEDS: INSULIN LISPRO 100 UNITS/ML SUBCUT SCH ×7 (07:50→21:57)
[2023-06-26 07:53] LABS: DIFFERENTIAL COMMENT 1
[2023-06-26] MEDS ORDERED: SODIUM BICARBONATE 8.4% 1 MEQ/ML 50ML SYR IV STA (08:02)
[2023-06-26] MEDS ORDERED: INSULIN REGULAR (HUMULIN R) 300UNITS/3ML VIAL IV SCH (08:10)
[2023-06-26] MEDS ORDERED: DEXTROSE 50% WATER 50ML SYRINGE IV SCH (08:10)
[2023-06-26] MEDS: BLOOD SUGAR DIAGNOSTIC STRIP TEST SCH ×4 (08:40→21:00)
[2023-06-26] MEDS: PANTOPRAZOLE SODIUM 40 MG/VIAL IV SCH ×2 (08:43→18:13)
[2023-06-26] MEDS: METOPROLOL TARTRATE 100MG TABLET PO SCH ×2 (08:46→19:39)
[2023-06-26] MEDS ORDERED: ENOXAPARIN 40MG/0.4ML SYR SUBCUT SCH (09:00)
[2023-06-26] MEDS: INSULIN GLARGINE 100 UNITS/ML SUBCUT SCH ×2 (12:20→21:56)
[2023-06-26 12:28] LABS: BG BASE EXCESS 2.8 mmol/L (-2.0-2.0); BG CARBOXYHEMOGLOBIN 0.4 % (0.5-1.5); BG DEOXYHEMOGLOBIN 3.1 % (0.0-5.0); BG HCO3 ACT 27.4 mmol/L (22.0-26.0); BG METHEMOGLOBIN 0.3 % (0.0-1.5); BG OXYGEN SATURATION 96.9 % (92.0-98.5); BG OXYHEMOGLOBIN 96.2 % (94.0-97.0); BG PCO2 42.4 mmHg (35.0-45.0); BG PH 7.428 (7.350-7.450); BG PO2 100.6 mmHg (75.0-100.0); BG SAMPLE SITE RIGHT RADIAL; BG TOTAL HEMOGLOBIN 8.9 g/dL (12.0-18.0); BG VENT MODE VENT - AC
[2023-06-26 12:28] LABS: ANISOCYTOSIS 1+; HYPOCHROMASIA 1+; MICROCYTOSIS 1+; PLATELET ESTIMATE NORMAL
[2023-06-26] MEDS ORDERED: PROPOFOL 10MG/ML 100ML 100 ML IV PRN (13:45)
[2023-06-26] MEDS: SODIUM BICARBONATE 8.4% 1 MEQ/ML 50ML SYR IV NR (17:50)
[2023-06-26] MEDS: PHENYLEPHRINE 100 MG in DEXT 5% WATER 240 ML IV PRN (21:13)
[2023-06-27] VITALS (108 sets, daily range): BP systolic 59–114; BP diastolic 41–75; PULSE 94–122; RESP 15–28; TEMP 100.1–103.7
[2023-06-27] MEDS: PROPOFOL 10MG/ML 100ML 100 ML IV PRN ×4 (01:07→22:12)
[2023-06-27] MEDS: FENTANYL CITRATE 2,500 MCG in SODIUM CHLORIDE 0.9% 200 ML IV PRN ×2 (02:58→23:48)
[2023-06-27] MEDS: ACETAMINOPHEN 325MG TABLET PO PRN ×2 (05:57→22:46)
[2023-06-27] MEDS: PHENYLEPHRINE 100 MG in DEXT 5% WATER 240 ML IV PRN ×3 (05:57→20:17)
[2023-06-27 06:28] LABS: POTASSIUM 4.1 mEq/L (3.5-5.1)
[2023-06-27 06:29] LABS: HEMATOCRIT. 21.6 % (42.0-52.0); MEAN CORPUSCULAR HEMOGLOBIN 24.7 pg (28.0-32.0); MEAN CORPUSCULAR HGB CONC 32.6 g/dL (31.0-37.0); MEAN CORPUSCULAR VOLUME 75.8 fL (80.0-94.0); MEAN PLATELET VOLUME 10.9 fl (7.4-10.4); PLATELET 292 x1000/uL (130-400); RED BLOOD CELL COUNT 2.85 mill/uL (4.7-6.1); RED CELL DISTRIBUTION WIDTH 17.1 % (11.6-14.6); WHITE BLOOD COUNT 17.4 x1000/uL (4.5-11.0)
[2023-06-27 06:36] LABS: CREATININE 6.4 mg/dL (0.6-1.3)
[2023-06-27 06:37] LABS: CALCIUM 5.7 mg/dL (8.5-10.1)
[2023-06-27] MEDS: MEROPENEM 1,000 MG in SODIUM CHLORIDE 0.9% 100 ML IV SCH (06:40)
[2023-06-27] MEDS: SODIUM BICARBONATE 100 MEQ in SODIUM CHLORIDE 0.45% 1,000 ML IV SCH (06:40)
[2023-06-27 06:52] LABS: DIFFERENTIAL COMMENT 1
[2023-06-27] MEDS: INSULIN LISPRO 100 UNITS/ML SUBCUT SCH ×7 (07:50→20:31)
[2023-06-27] MEDS: BLOOD SUGAR DIAGNOSTIC STRIP TEST SCH ×4 (08:05→20:30)
[2023-06-27] MEDS: METOPROLOL TARTRATE 100MG TABLET PO SCH ×2 (08:08→20:25)
[2023-06-27 08:50] LABS: BG BASE EXCESS 5.7 mmol/L (-2.0-2.0); BG CARBOXYHEMOGLOBIN 0.4 % (0.5-1.5); BG DEOXYHEMOGLOBIN 3.4 % (0.0-5.0); BG FRACTION INSPIRED OXYGEN 45; BG HCO3 ACT 29.9 mmol/L (22.0-26.0); BG METHEMOGLOBIN 0.4 % (0.0-1.5); BG OXYGEN SATURATION 96.6 % (92.0-98.5); BG OXYHEMOGLOBIN 95.8 % (94.0-97.0); BG PCO2 42.1 mmHg (35.0-45.0); BG PH 7.469 (7.350-7.450); BG PO2 100.8 mmHg (75.0-100.0); BG SAMPLE SITE RIGHT RADIAL; BG TOTAL HEMOGLOBIN 6.6 g/dL (12.0-18.0); BG VENT MODE VENT - AC
[2023-06-27] MEDS: PANTOPRAZOLE SODIUM 40 MG/VIAL IV SCH ×2 (09:01→17:22)
[2023-06-27] MEDS: INSULIN GLARGINE 100 UNITS/ML SUBCUT SCH ×2 (09:02→22:13)
[2023-06-27] MEDS ORDERED: DEXT 5%/0.45% NACL 1000ML 1,000 ML IV SCH (09:15)
[2023-06-27] MEDS ORDERED: ACETAZOLAMIDE SODIUM 500MG/VIAL IV NR (11:00)
[2023-06-27 14:07] LABS: ANISOCYTOSIS 1+; MICROCYTOSIS 1+; PLATELET ESTIMATE NORMAL
[2023-06-27] MEDS: DEXT 5%/0.45% NACL 1000ML 1,000 ML IV SCH ×2 (15:30→23:59)
[2023-06-28] VITALS (111 sets, daily range): BP systolic 80–156; BP diastolic 42–76; PULSE 64–102; RESP 14–35; TEMP 96.8–102.7; O2SAT 100
[2023-06-28] MEDS: PROPOFOL 10MG/ML 100ML 100 ML IV PRN ×2 (00:38→05:15)
[2023-06-28] MEDS: PHENYLEPHRINE 100 MG in DEXT 5% WATER 240 ML IV PRN ×2 (02:47→19:31)
[2023-06-28] MEDS: ACETAMINOPHEN 325MG TABLET PO PRN ×2 (04:16→20:39)
[2023-06-28 05:29] LABS: HEMATOCRIT. 26.8 % (42.0-52.0); HEMOGLOBIN. 8.7 g/dL (14.0-18.0); MEAN CORPUSCULAR HEMOGLOBIN 25.2 pg (28.0-32.0); MEAN CORPUSCULAR HGB CONC 32.5 g/dL (31.0-37.0); MEAN CORPUSCULAR VOLUME 77.6 fL (80.0-94.0); MEAN PLATELET VOLUME 10.9 fl (7.4-10.4); PLATELET 256 x1000/uL (130-400); RED BLOOD CELL COUNT 3.45 mill/uL (4.7-6.1); RED CELL DISTRIBUTION WIDTH 16.7 % (11.6-14.6)
[2023-06-28 05:34] LABS: POTASSIUM 4.1 mEq/L (3.5-5.1)
[2023-06-28] MEDS: MEROPENEM 1,000 MG in SODIUM CHLORIDE 0.9% 100 ML IV SCH (05:48)
[2023-06-28 06:06] LABS: DIFFERENTIAL COMMENT 1
[2023-06-28 06:35] LABS: CREATININE 7.6 mg/dL (0.6-1.3)
[2023-06-28 06:39] LABS: CALCIUM 5.2 mg/dL (8.5-10.1)
[2023-06-28] MEDS: BLOOD SUGAR DIAGNOSTIC STRIP TEST SCH ×4 (06:49→20:32)
[2023-06-28] MEDS: INSULIN LISPRO 100 UNITS/ML SUBCUT SCH ×6 (06:49→20:41)
[2023-06-28 09:00] LABS: BG BASE EXCESS -0.6 mmol/L (-2.0-2.0); BG CARBOXYHEMOGLOBIN 0.2 % (0.5-1.5); BG DEOXYHEMOGLOBIN 2.1 % (0.0-5.0); BG FRACTION INSPIRED OXYGEN 40; BG HCO3 ACT 24.9 mmol/L (22.0-26.0); BG METHEMOGLOBIN 0.1 % (0.0-1.5); BG OXYGEN SATURATION 97.9 % (92.0-98.5); BG OXYHEMOGLOBIN 97.6 % (94.0-97.0); BG PCO2 44.7 mmHg (35.0-45.0); BG PH 7.363 (7.350-7.450); BG PO2 129.4 mmHg (75.0-100.0); BG SAMPLE SITE RIGHT RADIAL; BG TOTAL HEMOGLOBIN 9.8 g/dL (12.0-18.0); BG TOTAL RESPIRATORY RATE 20 b/min; BG VENT MODE VENT - AC
[2023-06-28] MEDS: METOPROLOL TARTRATE 100MG TABLET PO SCH ×2 (09:00→20:21)
[2023-06-28] MEDS: INSULIN GLARGINE 100 UNITS/ML SUBCUT SCH ×2 (10:00→21:35)
[2023-06-28] MEDS: PANTOPRAZOLE SODIUM 40 MG/VIAL IV SCH ×2 (10:08→18:41)
[2023-06-28] MEDS ORDERED: ALBUMIN HUMAN 25GM/500ML (5%) IV PRN (11:30)
[2023-06-28 13:48] LABS: PHOSPHORUS 8.5 mg/dL (2.5-4.9)
[2023-06-28 15:34] LABS: BG BASE EXCESS -1.5 mmol/L (-2.0-2.0); BG CARBOXYHEMOGLOBIN 0.4 % (0.5-1.5); BG DEOXYHEMOGLOBIN 3.8 % (0.0-5.0); BG FRACTION INSPIRED OXYGEN 40; BG HCO3 ACT 23.2 mmol/L (22.0-26.0); BG METHEMOGLOBIN 0.3 % (0.0-1.5); BG OXYGEN SATURATION 96.2 % (92.0-98.5); BG OXYHEMOGLOBIN 95.5 % (94.0-97.0); BG PCO2 38.9 mmHg (35.0-45.0); BG PH 7.393 (7.350-7.450); BG PO2 91.6 mmHg (75.0-100.0); BG SAMPLE SITE RIGHT RADIAL; BG TOTAL HEMOGLOBIN 11.5 g/dL (12.0-18.0); BG VENT MODE VENT - CPAP
[2023-06-28 15:40] LABS: MICROCYTOSIS 1+; PLATELET ESTIMATE NORMAL
[2023-06-28] MEDS: ONDANSETRON HCL 4MG/2ML INJ IV PRN (20:39)
[2023-06-28] MEDS ORDERED: TOTAL PARENTERAL NUTRITION IV SCH (21:00)
[2023-06-28] MEDS ORDERED: NALOXONE HCL 0.4MG/ML VIAL IV PRN (22:15)
[2023-06-28] MEDS: MORPHINE SULFATE 2 MG/ML CPJ (NOT FOR IM USE) IV PRN (22:18)
[2023-06-29] VITALS (73 sets, daily range): BP systolic 92–123; BP diastolic 43–79; PULSE 90–108; RESP 12–36; TEMP 98.7–102.8
[2023-06-29] MEDS: MORPHINE SULFATE 2 MG/ML CPJ (NOT FOR IM USE) IV PRN (05:35)
[2023-06-29 05:51] LABS: HEMATOCRIT. 27.1 % (42.0-52.0); HEMOGLOBIN. 8.5 g/dL (14.0-18.0); MEAN CORPUSCULAR HEMOGLOBIN 24.8 pg (28.0-32.0); MEAN CORPUSCULAR HGB CONC 31.4 g/dL (31.0-37.0); MEAN CORPUSCULAR VOLUME 78.9 fL (80.0-94.0); MEAN PLATELET VOLUME 11.2 fl (7.4-10.4); PLATELET 196 x1000/uL (130-400); RED BLOOD CELL COUNT 3.43 mill/uL (4.7-6.1); RED CELL DISTRIBUTION WIDTH 16.3 % (11.6-14.6); WHITE BLOOD COUNT 18.4 x1000/uL (4.5-11.0)
[2023-06-29 06:14] LABS: CALCIUM 5.9 mg/dL (8.5-10.1)
[2023-06-29] MEDS: MEROPENEM 1,000 MG in SODIUM CHLORIDE 0.9% 100 ML IV SCH (06:18)
[2023-06-29] MEDS: BLOOD SUGAR DIAGNOSTIC STRIP TEST SCH ×3 (06:39→18:00)
[2023-06-29 06:45] LABS: DIFFERENTIAL COMMENT 1
[2023-06-29] MEDS: INSULIN LISPRO 100 UNITS/ML SUBCUT SCH ×5 (06:50→18:00)
[2023-06-29 08:46] LABS: BG BASE EXCESS -4.1 mmol/L (-2.0-2.0); BG CARBOXYHEMOGLOBIN 0.9 % (0.5-1.5); BG DEOXYHEMOGLOBIN 3.3 % (0.0-5.0); BG FRACTION INSPIRED OXYGEN 36; BG HCO3 ACT 20.5 mmol/L (22.0-26.0); BG METHEMOGLOBIN 0.3 % (0.0-1.5); BG OXYGEN SATURATION 96.7 % (92.0-98.5); BG OXYHEMOGLOBIN 95.5 % (94.0-97.0); BG PCO2 35.7 mmHg (35.0-45.0); BG PH 7.378 (7.350-7.450); BG PO2 98.4 mmHg (75.0-100.0); BG SAMPLE SITE RIGHT RADIAL; BG TOTAL HEMOGLOBIN 8.9 g/dL (12.0-18.0); BG VENT MODE NASAL CANNULA
[2023-06-29] MEDS: METOPROLOL TARTRATE 100MG TABLET PO SCH ×2 (09:00→21:11)
[2023-06-29] MEDS: PANTOPRAZOLE SODIUM 40 MG/VIAL IV SCH ×2 (11:43→18:56)
[2023-06-29] MEDS: INSULIN GLARGINE 100 UNITS/ML SUBCUT SCH ×2 (11:44→22:03)
[2023-06-29 12:13] LABS: HYPOCHROMASIA 1+; MICROCYTOSIS 1+; PLATELET ESTIMATE NORMAL
[2023-06-29] MEDS ORDERED: INSULIN LISPRO 100 UNITS/ML SUBCUT NR (12:15)
[2023-06-29] MEDS: AZITHROMYCIN 500 MG in DEXT 5% WATER 250 ML IV SCH (12:44)
[2023-06-29] MEDS ORDERED: CALCIUM GLUCONATE 1GM PREMIX 50 ML IV NR (13:00)
[2023-06-29] MEDS ORDERED: INSULIN REGULAR (HUMULIN R) 300UNITS/3ML VIAL IV NR (18:30)
[2023-06-29] MEDS ORDERED: TOTAL PARENTERAL NUTRITION IV SCH (21:00)
[2023-06-30] VITALS (93 sets, daily range): BP systolic 83–157; BP diastolic 32–89; PULSE 83–106; RESP 20–35; TEMP 98.3–102
[2023-06-30] MEDS: BLOOD SUGAR DIAGNOSTIC STRIP TEST SCH ×4 (00:19→18:18)
[2023-06-30] MEDS: INSULIN LISPRO 100 UNITS/ML SUBCUT SCH ×7 (00:23→18:18)
[2023-06-30] MEDS: ACETAMINOPHEN 325MG TABLET PO PRN ×3 (00:44→21:00)
[2023-06-30] MEDS: MEROPENEM 500MG in NORMAL SALINE 50ML IV SCH (06:10)
[2023-06-30 06:27] LABS: HEMATOCRIT. 25.9 % (42.0-52.0); HEMOGLOBIN. 8.3 g/dL (14.0-18.0); MEAN CORPUSCULAR HEMOGLOBIN 25.1 pg (28.0-32.0); MEAN CORPUSCULAR VOLUME 78.5 fL (80.0-94.0); PLATELET 237 x1000/uL (130-400); RED CELL DISTRIBUTION WIDTH 16.9 % (11.6-14.6); WHITE BLOOD COUNT 20.7 x1000/uL (4.5-11.0)
[2023-06-30 06:51] LABS: DIFFERENTIAL COMMENT 1
[2023-06-30 07:10] LABS: PHOSPHORUS 7.4 mg/dL (2.5-4.9); POTASSIUM 4.2 mEq/L (3.5-5.1)
[2023-06-30 07:38] LABS: CALCIUM 5.9 mg/dL (8.5-10.1)
[2023-06-30] MEDS: ENOXAPARIN 40MG/0.4ML SYR SUBCUT SCH (08:20)
[2023-06-30] MEDS: PANTOPRAZOLE SODIUM 40 MG/VIAL IV SCH ×2 (08:20→18:16)
[2023-06-30] MEDS: METOPROLOL TARTRATE 100MG TABLET PO SCH ×2 (08:22→21:12)
[2023-06-30] MEDS: INSULIN GLARGINE 100 UNITS/ML SUBCUT SCH ×2 (10:10→22:10)
[2023-06-30 10:48] LABS: ANISOCYTOSIS 1+; MICROCYTOSIS 1+; PLATELET ESTIMATE NORMAL
[2023-06-30] MEDS ORDERED: INSULIN REGULAR (HUMULIN R) 300UNITS/3ML VIAL IV NR (11:15)
[2023-06-30] MEDS: AZITHROMYCIN 500 MG in DEXT 5% WATER 250 ML IV SCH (12:05)
[2023-06-30] MEDS ORDERED: CALCIUM GLUCONATE 1GM PREMIX 50 ML IV NR (13:00)
[2023-06-30] MEDS: PHENYLEPHRINE 100 MG in DEXT 5% WATER 240 ML IV PRN (14:13)
[2023-06-30] MEDS ORDERED: TOTAL PARENTERAL NUTRITION IV SCH (21:00)
[2023-07-01] VITALS (75 sets, daily range): BP systolic 106–153; BP diastolic 56–85; PULSE 94–111; RESP 24–37; TEMP 98.1–100.1
[2023-07-01] MEDS: INSULIN LISPRO 100 UNITS/ML SUBCUT SCH ×7 (00:04→18:55)
[2023-07-01] MEDS: BLOOD SUGAR DIAGNOSTIC STRIP TEST SCH ×4 (00:09→18:56)
[2023-07-01 05:13] LABS: HEMATOCRIT. 26.5 % (42.0-52.0); HEMOGLOBIN. 8.5 g/dL (14.0-18.0); MEAN CORPUSCULAR HEMOGLOBIN 25.2 pg (28.0-32.0); MEAN CORPUSCULAR HGB CONC 32.2 g/dL (31.0-37.0); MEAN CORPUSCULAR VOLUME 78.2 fL (80.0-94.0); MEAN PLATELET VOLUME 10.6 fl (7.4-10.4); PLATELET 259 x1000/uL (130-400); RED BLOOD CELL COUNT 3.39 mill/uL (4.7-6.1); RED CELL DISTRIBUTION WIDTH 16.8 % (11.6-14.6); WHITE BLOOD COUNT 19.9 x1000/uL (4.5-11.0)
[2023-07-01 05:51] LABS: DIFFERENTIAL COMMENT 1
[2023-07-01] MEDS: MEROPENEM 500MG in NORMAL SALINE 50ML IV SCH (06:06)
[2023-07-01 06:15] LABS: CALCIUM 6.5 mg/dL (8.5-10.1); POTASSIUM 4.4 mEq/L (3.5-5.1)
[2023-07-01 06:20] LABS: PHOSPHORUS 6.1 mg/dL (2.5-4.9)
[2023-07-01 06:27] LABS: CREATININE 7.5 mg/dL (0.6-1.3)
[2023-07-01] MEDS: ACETAMINOPHEN 325MG TABLET PO PRN (06:47)
[2023-07-01] MEDS: PANTOPRAZOLE SODIUM 40 MG/VIAL IV SCH ×2 (08:52→17:16)
[2023-07-01] MEDS: ENOXAPARIN 40MG/0.4ML SYR SUBCUT SCH (08:58)
[2023-07-01] MEDS: METOPROLOL TARTRATE 100MG TABLET PO SCH ×2 (09:00→22:47)
[2023-07-01] MEDS: INSULIN GLARGINE 100 UNITS/ML SUBCUT SCH ×2 (10:08→22:48)
[2023-07-01 10:58] LABS: ANISOCYTOSIS 1+; MICROCYTOSIS 1+; PLATELET ESTIMATE NORMAL
[2023-07-01] MEDS: AZITHROMYCIN 500 MG in DEXT 5% WATER 250 ML IV SCH (13:20)
[2023-07-01] MEDS ORDERED: PHENYLEPHRINE 100 MG in DEXT 5% WATER 240 ML IV PRN (20:00)
[2023-07-01] MEDS: TOTAL PARENTERAL NUTRITION IV SCH (21:11)
[2023-07-02] VITALS (89 sets, daily range): BP systolic 96–143; BP diastolic 47–102; PULSE 93–110; RESP 16–37; TEMP 98.2–99.3
[2023-07-02] MEDS: BLOOD SUGAR DIAGNOSTIC STRIP TEST SCH ×5 (00:02→21:40)
[2023-07-02 05:47] LABS: HEMATOCRIT. 22.5 % (42.0-52.0); HEMOGLOBIN. 7.1 g/dL (14.0-18.0); MEAN CORPUSCULAR HEMOGLOBIN 24.8 pg (28.0-32.0); MEAN CORPUSCULAR HGB CONC 31.5 g/dL (31.0-37.0); MEAN CORPUSCULAR VOLUME 78.9 fL (80.0-94.0); MEAN PLATELET VOLUME 10.1 fl (7.4-10.4); PLATELET 244 x1000/uL (130-400); RED BLOOD CELL COUNT 2.86 mill/uL (4.7-6.1); RED CELL DISTRIBUTION WIDTH 16.3 % (11.6-14.6)
[2023-07-02] MEDS: INSULIN LISPRO 100 UNITS/ML SUBCUT SCH ×7 (06:00→17:01)
[2023-07-02] MEDS: MEROPENEM 500MG in NORMAL SALINE 50ML IV SCH (06:00)
[2023-07-02 06:03] LABS: CALCIUM 6.2 mg/dL (8.5-10.1); PHOSPHORUS 7.3 mg/dL (2.5-4.9)
[2023-07-02 06:11] LABS: DIFFERENTIAL COMMENT 1
[2023-07-02 06:11] LABS: CREATININE 8.8 mg/dL (0.6-1.3)
[2023-07-02 06:12] LABS: POTASSIUM 5.2 mEq/L (3.5-5.1)
[2023-07-02] MEDS: PANTOPRAZOLE SODIUM 40 MG/VIAL IV SCH ×2 (08:20→17:47)
[2023-07-02] MEDS: ENOXAPARIN 40MG/0.4ML SYR SUBCUT SCH (08:20)
[2023-07-02] MEDS: METOPROLOL TARTRATE 100MG TABLET PO SCH ×2 (08:46→21:40)
[2023-07-02 10:11] LABS: PLATELET ESTIMATE NORMAL
[2023-07-02 10:12] LABS: ANISOCYTOSIS 1+; MICROCYTOSIS 1+
[2023-07-02] MEDS: INSULIN GLARGINE 100 UNITS/ML SUBCUT SCH ×2 (10:30→21:39)
[2023-07-02] MEDS: AZITHROMYCIN 500 MG in DEXT 5% WATER 250 ML IV SCH (13:07)
[2023-07-02] MEDS: TOTAL PARENTERAL NUTRITION IV SCH ×3 (21:00→21:45)
[2023-07-02] MEDS ORDERED: INSULIN LISPRO 100 UNITS/ML SUBCUT NR (23:45)
[2023-07-03] VITALS (42 sets, daily range): BP systolic 109–144; BP diastolic 56–85; PULSE 81–108; RESP 18–35; TEMP 97.8–99
[2023-07-03] MEDS: MORPHINE SULFATE 2 MG/ML CPJ (NOT FOR IM USE) IV PRN (03:24)
[2023-07-03 05:19] LABS: HEMATOCRIT. 23.8 % (42.0-52.0); HEMOGLOBIN. 7.7 g/dL (14.0-18.0); MEAN CORPUSCULAR HEMOGLOBIN 25.6 pg (28.0-32.0); MEAN CORPUSCULAR HGB CONC 32.3 g/dL (31.0-37.0); MEAN CORPUSCULAR VOLUME 79.4 fL (80.0-94.0); MEAN PLATELET VOLUME 10.4 fl (7.4-10.4); PLATELET 234 x1000/uL (130-400); RED CELL DISTRIBUTION WIDTH 16.6 % (11.6-14.6); WHITE BLOOD COUNT 13.3 x1000/uL (4.5-11.0)
[2023-07-03 05:32] LABS: POTASSIUM 4.4 mEq/L (3.5-5.1)
[2023-07-03 05:38] LABS: PROTHROMBIN TIME 10.9 sec (9.6-11.0)
[2023-07-03 05:41] LABS: CALCIUM 6.7 mg/dL (8.5-10.1)
[2023-07-03 05:43] LABS: CREATININE 7.9 mg/dL (0.6-1.3)
[2023-07-03 06:35] LABS: DIFFERENTIAL COMMENT 1
[2023-07-03] MEDS: MEROPENEM 500MG in NORMAL SALINE 50ML IV SCH (06:52)
[2023-07-03] MEDS: INSULIN LISPRO 100 UNITS/ML SUBCUT SCH ×6 (07:50→18:00)
[2023-07-03 07:57] LABS: PHOSPHORUS 6.9 mg/dL (2.5-4.9)
[2023-07-03] MEDS: METOPROLOL TARTRATE 100MG TABLET PO SCH ×2 (08:46→21:56)
[2023-07-03] MEDS: PANTOPRAZOLE SODIUM 40 MG/VIAL IV SCH ×2 (08:46→17:59)
[2023-07-03] MEDS: ENOXAPARIN 40MG/0.4ML SYR SUBCUT SCH (08:47)
[2023-07-03] MEDS: BLOOD SUGAR DIAGNOSTIC STRIP TEST SCH ×4 (08:49→21:56)
[2023-07-03] MEDS: INSULIN GLARGINE 100 UNITS/ML SUBCUT SCH ×2 (09:56→21:57)
[2023-07-03] MEDS: AZITHROMYCIN 500 MG in DEXT 5% WATER 250 ML IV SCH (12:07)
[2023-07-03 13:58] LABS: ANISOCYTOSIS 1+; MICROCYTOSIS 1+; PLATELET ESTIMATE NORMAL
[2023-07-04] VITALS (22 sets, daily range): BP systolic 99–143; BP diastolic 57–75; PULSE 92–111; RESP 18–28; TEMP 97.7–101.4
[2023-07-04] MEDS: MEROPENEM 500MG in NORMAL SALINE 50ML IV SCH (06:10)
[2023-07-04] MEDS: BLOOD SUGAR DIAGNOSTIC STRIP TEST SCH ×4 (07:30→21:00)
[2023-07-04] MEDS: INSULIN LISPRO 100 UNITS/ML SUBCUT SCH ×7 (07:30→21:00)
[2023-07-04] MEDS: CALCIUM ACETATE 667MG CAPSULE PO SCH ×2 (08:25→17:31)
[2023-07-04] MEDS: ENOXAPARIN 40MG/0.4ML SYR SUBCUT SCH (08:25)
[2023-07-04] MEDS: PANTOPRAZOLE SODIUM 40 MG/VIAL IV SCH ×2 (08:25→17:31)
[2023-07-04] MEDS: METOPROLOL TARTRATE 100MG TABLET PO SCH ×2 (08:29→22:30)
[2023-07-04 09:25] LABS: HEMATOCRIT. 23.7 % (42.0-52.0); HEMOGLOBIN. 7.6 g/dL (14.0-18.0); MEAN CORPUSCULAR HEMOGLOBIN 25.6 pg (28.0-32.0); MEAN CORPUSCULAR HGB CONC 32.2 g/dL (31.0-37.0); MEAN CORPUSCULAR VOLUME 79.6 fL (80.0-94.0); MEAN PLATELET VOLUME 10.4 fl (7.4-10.4); PLATELET 272 x1000/uL (130-400); RED BLOOD CELL COUNT 2.97 mill/uL (4.7-6.1); RED CELL DISTRIBUTION WIDTH 16.6 % (11.6-14.6); WHITE BLOOD COUNT 12.3 x1000/uL (4.5-11.0)
[2023-07-04 09:29] LABS: DIFFERENTIAL COMMENT 1
[2023-07-04 09:43] LABS: CALCIUM 6.3 mg/dL (8.5-10.1); POTASSIUM 4.6 mEq/L (3.5-5.1)
[2023-07-04] MEDS: INSULIN GLARGINE 100 UNITS/ML SUBCUT SCH ×2 (10:00→22:00)
[2023-07-04 10:08] LABS: CREATININE 9.3 mg/dL (0.6-1.3)
[2023-07-04 10:26] LABS: PHOSPHORUS 9.2 mg/dL (2.5-4.9)
[2023-07-04] MEDS: ACETAMINOPHEN 325MG TABLET PO PRN ×2 (10:28→17:31)
[2023-07-04 11:06] LABS: PLATELET ESTIMATE NORMAL
[2023-07-04 11:07] LABS: ANISOCYTOSIS 1+
[2023-07-04] MEDS ORDERED: MORPHINE SULFATE 2 MG/ML CPJ (NOT FOR IM USE) IV PRN (19:15)
[2023-07-05] VITALS (13 sets, daily range): BP systolic 106–140; BP diastolic 57–87; PULSE 87–109; RESP 18–32; TEMP 97.8–98.2
[2023-07-05] MEDS: MEROPENEM 500MG in NORMAL SALINE 50ML IV SCH (06:09)
[2023-07-05 07:16] LABS: HEMATOCRIT. 22.9 % (42.0-52.0); HEMOGLOBIN. 7.3 g/dL (14.0-18.0); MEAN CORPUSCULAR HEMOGLOBIN 25.6 pg (28.0-32.0); MEAN CORPUSCULAR VOLUME 79.9 fL (80.0-94.0); MEAN PLATELET VOLUME 10.3 fl (7.4-10.4); PLATELET 289 x1000/uL (130-400); RED BLOOD CELL COUNT 2.87 mill/uL (4.7-6.1); RED CELL DISTRIBUTION WIDTH 16.8 % (11.6-14.6); WHITE BLOOD COUNT 11.5 x1000/uL (4.5-11.0)
[2023-07-05 07:18] LABS: DIFFERENTIAL COMMENT 1
[2023-07-05] MEDS: INSULIN LISPRO 100 UNITS/ML SUBCUT SCH ×7 (07:30→21:00)
[2023-07-05] MEDS: BLOOD SUGAR DIAGNOSTIC STRIP TEST SCH ×4 (07:30→21:00)
[2023-07-05 09:03] LABS: POTASSIUM 4.1 mEq/L (3.5-5.1)
[2023-07-05 09:08] LABS: CALCIUM 6.6 mg/dL (8.5-10.1)
[2023-07-05 09:17] LABS: CREATININE 8.4 mg/dL (0.6-1.3)
[2023-07-05] MEDS: CALCIUM ACETATE 667MG CAPSULE PO SCH ×3 (09:37→18:30)
[2023-07-05] MEDS: METOPROLOL TARTRATE 100MG TABLET PO SCH ×2 (09:40→22:43)
[2023-07-05] MEDS: PANTOPRAZOLE SODIUM 40 MG/VIAL IV SCH ×2 (09:41→18:28)
[2023-07-05] MEDS ORDERED: NALOXONE HCL 0.4MG/ML VIAL IV PRN (09:45)
[2023-07-05] MEDS: INSULIN GLARGINE 100 UNITS/ML SUBCUT SCH ×2 (10:00→22:00)
[2023-07-05] MEDS: ENOXAPARIN 40MG/0.4ML SYR SUBCUT SCH (10:05)
[2023-07-05 16:46] LABS: ANISOCYTOSIS 1+; MICROCYTOSIS 1+; PLATELET ESTIMATE NORMAL
[2023-07-05] MEDS ORDERED: LORAZEPAM 2MG/ML CPJ IV NR (23:15)
[2023-07-06] VITALS (16 sets, daily range): BP systolic 95–125; BP diastolic 53–78; PULSE 90–102; RESP 19–31; TEMP 98–99.1
[2023-07-06] MEDS: THIAMINE HCL 500 MG in SODIUM CHLORIDE 0.9% 95 ML IV SCH (02:20)
[2023-07-06] MEDS: MEROPENEM 500MG in NORMAL SALINE 50ML IV SCH (06:37)
[2023-07-06] MEDS: INSULIN LISPRO 100 UNITS/ML SUBCUT SCH ×7 (07:30→21:00)
[2023-07-06] MEDS: BLOOD SUGAR DIAGNOSTIC STRIP TEST SCH ×4 (08:14→21:00)
[2023-07-06] MEDS: METOPROLOL TARTRATE 100MG TABLET PO SCH ×2 (08:15→21:10)
[2023-07-06] MEDS: CALCIUM ACETATE 667MG CAPSULE PO SCH ×3 (08:17→17:10)
[2023-07-06] MEDS: PANTOPRAZOLE SODIUM 40 MG/VIAL IV SCH ×2 (08:18→17:07)
[2023-07-06] MEDS: ENOXAPARIN 40MG/0.4ML SYR SUBCUT SCH (08:19)
[2023-07-06 08:42] LABS: HEMOGLOBIN. 8.4 g/dL (14.0-18.0); MEAN CORPUSCULAR HEMOGLOBIN 26.4 pg (28.0-32.0); MEAN CORPUSCULAR HGB CONC 32.4 g/dL (31.0-37.0); MEAN CORPUSCULAR VOLUME 81.6 fL (80.0-94.0); MEAN PLATELET VOLUME 10.1 fl (7.4-10.4); PLATELET 296 x1000/uL (130-400); RED BLOOD CELL COUNT 3.18 mill/uL (4.7-6.1); RED CELL DISTRIBUTION WIDTH 16.8 % (11.6-14.6); WHITE BLOOD COUNT 10.5 x1000/uL (4.5-11.0)
[2023-07-06 08:48] LABS: POTASSIUM 4.3 mEq/L (3.5-5.1)
[2023-07-06 08:53] LABS: DIFFERENTIAL COMMENT 1
[2023-07-06 08:54] LABS: CALCIUM 6.4 mg/dL (8.5-10.1)
[2023-07-06 09:32] LABS: VITAMIN B12 SERUM 1887 pg/mL (211-911)
[2023-07-06 09:39] LABS: CREATININE 9.3 mg/dL (0.6-1.3)
[2023-07-06] MEDS: INSULIN GLARGINE 100 UNITS/ML SUBCUT SCH ×2 (09:59→21:53)
[2023-07-06 14:32] LABS: PLATELET ESTIMATE NORMAL
[2023-07-06 14:33] LABS: ANISOCYTOSIS 1+
[2023-07-06 14:58] LABS: BG BASE EXCESS -4.2 mmol/L (-2.0-2.0); BG CARBOXYHEMOGLOBIN 0.1 % (0.5-1.5); BG DEOXYHEMOGLOBIN 5.2 % (0.0-5.0); BG FRACTION INSPIRED OXYGEN 36; BG HCO3 ACT 19.5 mmol/L (22.0-26.0); BG METHEMOGLOBIN 0.3 % (0.0-1.5); BG OXYGEN SATURATION 94.8 % (92.0-98.5); BG OXYHEMOGLOBIN 94.4 % (94.0-97.0); BG PCO2 30.4 mmHg (35.0-45.0); BG PH 7.424 (7.350-7.450); BG PO2 82.7 mmHg (75.0-100.0); BG SAMPLE SITE LEFT RADIAL; BG VENT MODE NASAL CANNULA
[2023-07-06 16:44] LABS: INDEX HEMOLYSI 1 (1-3)
[2023-07-06 16:48] LABS: AMMONIA 36 uMol/L (<32)
[2023-07-06] MEDS: ACETAMINOPHEN 325MG TABLET PO PRN (17:15)
[2023-07-06] MEDS ORDERED: FAT EMULSIONS 500 ML IV SCH (21:00)
[2023-07-07] VITALS: BP 126/78; PULSE 89; RESP 23; TEMP 98.1
[2023-07-07] MEDS: THIAMINE HCL 500 MG in SODIUM CHLORIDE 0.9% 95 ML IV SCH ×2 (00:17→23:00)
[2023-07-07 04:00] VITALS: BP 105/65; PULSE 87; RESP 17; TEMP 97.8
[2023-07-07] MEDS: MEROPENEM 500MG in NORMAL SALINE 50ML IV SCH (05:13)
[2023-07-07] MEDS: BLOOD SUGAR DIAGNOSTIC STRIP TEST SCH ×4 (07:30→21:00)
[2023-07-07] MEDS: INSULIN LISPRO 100 UNITS/ML SUBCUT SCH ×7 (07:30→21:00)
[2023-07-07 08:00] VITALS: BP 109/68; PULSE 88; RESP 22; TEMP 98.5
[2023-07-07 08:28] LABS: BASOPHILS % 0.7 % (0.0-2.0); EOSINOPHILS % 0.7 % (0.0-5.0); HEMATOCRIT. 25.3 % (42.0-52.0); HEMOGLOBIN. 8.3 g/dL (14.0-18.0); LYMPHOCYTES % 7.2 % (20.0-50.0); MEAN CORPUSCULAR HEMOGLOBIN 26.8 pg (28.0-32.0); MEAN CORPUSCULAR HGB CONC 32.9 g/dL (31.0-37.0); MEAN CORPUSCULAR VOLUME 81.4 fL (80.0-94.0); MONOCYTES % 7.4 % (2.0-8.0); PLATELET 308 x1000/uL (130-400); RED CELL DISTRIBUTION WIDTH 16.7 % (11.6-14.6); WHITE BLOOD COUNT 8.8 x1000/uL (4.5-11.0)
[2023-07-07 09:34] LABS: CALCIUM 6.4 mg/dL (8.5-10.1); POTASSIUM 4.1 mEq/L (3.5-5.1)
[2023-07-07 10:18] LABS: CREATININE 8.2 mg/dL (0.6-1.3)
[2023-07-07] MEDS: CALCIUM ACETATE 667MG CAPSULE PO SCH ×3 (10:46→18:24)
[2023-07-07] MEDS: PANTOPRAZOLE SODIUM 40 MG/VIAL IV SCH ×2 (10:46→18:24)
[2023-07-07] MEDS: METOPROLOL TARTRATE 100MG TABLET PO SCH ×2 (10:47→21:14)
[2023-07-07] MEDS: ENOXAPARIN 40MG/0.4ML SYR SUBCUT SCH (10:48)
[2023-07-07] MEDS: INSULIN GLARGINE 100 UNITS/ML SUBCUT SCH ×2 (10:52→21:19)
[2023-07-07 12:00] VITALS: BP 117/64; PULSE 90; RESP 25; TEMP 98.9
[2023-07-07 16:00] VITALS: BP 114/61; PULSE 83; RESP 25; TEMP 98.7
[2023-07-07 20:00] VITALS: BP 117/67; PULSE 92; RESP 30; TEMP 97.3
[2023-07-08] VITALS: BP 111/62; PULSE 86; RESP 29; TEMP 97.7
[2023-07-08 04:00] VITALS: BP 108/60; PULSE 87; RESP 21; TEMP 97.5
[2023-07-08] MEDS: MEROPENEM 500MG in NORMAL SALINE 50ML IV SCH (06:01)
[2023-07-08] MEDS: INSULIN LISPRO 100 UNITS/ML SUBCUT SCH ×7 (07:30→21:00)
[2023-07-08] MEDS: BLOOD SUGAR DIAGNOSTIC STRIP TEST SCH ×4 (07:30→21:00)
[2023-07-08 08:00] VITALS: BP 117/64; PULSE 94; RESP 27; TEMP 97.5
[2023-07-08] MEDS: PANTOPRAZOLE SODIUM 40 MG/VIAL IV SCH ×2 (08:37→17:37)
[2023-07-08] MEDS: METOPROLOL TARTRATE 100MG TABLET PO SCH ×2 (08:38→23:11)
[2023-07-08] MEDS: ENOXAPARIN 40MG/0.4ML SYR SUBCUT SCH (08:38)
[2023-07-08] MEDS: CALCIUM ACETATE 667MG CAPSULE PO SCH ×3 (08:38→17:37)
[2023-07-08] MEDS: INSULIN GLARGINE 100 UNITS/ML SUBCUT SCH ×2 (09:56→22:00)
[2023-07-08 12:00] VITALS: BP 112/67; PULSE 88; RESP 28; TEMP 98
[2023-07-08 16:00] VITALS: BP 102/55; PULSE 93; RESP 29; TEMP 98
[2023-07-08 20:00] VITALS: BP 133/67; PULSE 95; RESP 27; TEMP 97.8
[2023-07-09] VITALS (15 sets, daily range): BP systolic 103–128; BP diastolic 58–72; PULSE 82–104; RESP 15–28; TEMP 97.2–98.4
[2023-07-09] MEDS: THIAMINE HCL 500 MG in SODIUM CHLORIDE 0.9% 95 ML IV SCH (00:39)
[2023-07-09] MEDS: MORPHINE SULFATE 2 MG/ML CPJ (NOT FOR IM USE) IV PRN ×2 (00:41→11:45)
[2023-07-09] MEDS: INSULIN LISPRO 100 UNITS/ML SUBCUT SCH ×7 (07:30→21:00)
[2023-07-09] MEDS: BLOOD SUGAR DIAGNOSTIC STRIP TEST SCH ×4 (07:30→21:49)
[2023-07-09] MEDS: ENOXAPARIN 40MG/0.4ML SYR SUBCUT SCH (07:51)
[2023-07-09] MEDS: METOPROLOL TARTRATE 100MG TABLET PO SCH ×2 (09:00→21:49)
[2023-07-09] MEDS: CALCIUM ACETATE 667MG CAPSULE PO SCH (09:39)
[2023-07-09] MEDS: PANTOPRAZOLE SODIUM 40 MG/VIAL IV SCH ×2 (09:39→17:58)
[2023-07-09] MEDS: INSULIN GLARGINE 100 UNITS/ML SUBCUT SCH ×2 (11:44→21:50)
[2023-07-09] MEDS: MENTHOL/LANOLIN/CALAMINE/ZN OX OINT 71GM TOP SCH ×2 (12:00→21:49)
[2023-07-09 12:22] LABS: BASOPHILS % 0.2 % (0.0-2.0); EOSINOPHILS % 0.7 % (0.0-5.0); HEMATOCRIT. 26.6 % (42.0-52.0); HEMOGLOBIN. 8.6 g/dL (14.0-18.0); LYMPHOCYTES % 7.2 % (20.0-50.0); MEAN CORPUSCULAR HEMOGLOBIN 26.4 pg (28.0-32.0); MEAN CORPUSCULAR HGB CONC 32.2 g/dL (31.0-37.0); MEAN CORPUSCULAR VOLUME 82.1 fL (80.0-94.0); MEAN PLATELET VOLUME 9.4 fl (7.4-10.4); MONOCYTES % 8.5 % (2.0-8.0); NEUTROPHILS % 83.4 % (40.0-76.0); PLATELET 323 x1000/uL (130-400); RED BLOOD CELL COUNT 3.23 mill/uL (4.7-6.1); RED CELL DISTRIBUTION WIDTH 16.6 % (11.6-14.6); WHITE BLOOD COUNT 6.7 x1000/uL (4.5-11.0)
[2023-07-09 12:45] LABS: POTASSIUM 4.3 mEq/L (3.5-5.1)
[2023-07-09 13:37] LABS: CALCIUM 5.8 mg/dL (8.5-10.1); CREATININE 8.9 mg/dL (0.6-1.3)
[2023-07-09] MEDS ORDERED: NALOXONE HCL 0.4MG/ML VIAL IV PRN (14:00)
[2023-07-09 14:13] LABS: BODY FLUID RBC 1455 /cu mm (0-2000); BODY FLUID WBC 280 /cu mm (0-200)
[2023-07-09] MEDS ORDERED: CALCIUM ACETATE 667MG CAPSULE PO SCH (18:00)
[2023-07-09] MEDS ORDERED: HEPARIN 1 UNIT/ML(NEONATAL) IV SCH (22:00)
[2023-07-10 04:00] VITALS: BP 129/60; PULSE 90; RESP 19; TEMP 98.2
[2023-07-10 05:57] LABS: POTASSIUM 3.6 mEq/L (3.5-5.1)
[2023-07-10 05:59] LABS: CALCIUM 6.5 mg/dL (8.5-10.1)
[2023-07-10 06:10] LABS: ALBUMIN 1.3 g/dL (3.4-5.0); PREALBUMIN 13.1 mg/dL (20.0-40.0)
[2023-07-10 06:17] LABS: CREATININE 6.3 mg/dL (0.6-1.3)
[2023-07-10 06:30] LABS: BASOPHILS % 0.9 % (0.0-2.0); EOSINOPHILS % 0.8 % (0.0-5.0); HEMATOCRIT. 25.8 % (42.0-52.0); HEMOGLOBIN. 8.4 g/dL (14.0-18.0); MEAN CORPUSCULAR HEMOGLOBIN 26.6 pg (28.0-32.0); MEAN CORPUSCULAR HGB CONC 32.7 g/dL (31.0-37.0); MEAN CORPUSCULAR VOLUME 81.4 fL (80.0-94.0); MEAN PLATELET VOLUME 9.7 fl (7.4-10.4); MONOCYTES % 11.5 % (2.0-8.0); NEUTROPHILS % 78.8 % (40.0-76.0); PLATELET 307 x1000/uL (130-400); RED BLOOD CELL COUNT 3.17 mill/uL (4.7-6.1); RED CELL DISTRIBUTION WIDTH 16.5 % (11.6-14.6); WHITE BLOOD COUNT 5.7 x1000/uL (4.5-11.0)
[2023-07-10] MEDS: ENOXAPARIN 40MG/0.4ML SYR SUBCUT SCH (07:25)
[2023-07-10] MEDS: BLOOD SUGAR DIAGNOSTIC STRIP TEST SCH ×4 (07:30→21:15)
[2023-07-10] MEDS: INSULIN LISPRO 100 UNITS/ML SUBCUT SCH ×7 (07:30→21:15)
[2023-07-10 08:00] VITALS: BP 136/91; PULSE 99; RESP 25; TEMP 97.8
[2023-07-10] MEDS: PANTOPRAZOLE SODIUM 40 MG/VIAL IV SCH ×2 (08:47→16:23)
[2023-07-10] MEDS: METOPROLOL TARTRATE 100MG TABLET PO SCH ×2 (08:49→21:14)
[2023-07-10] MEDS: CALCIUM ACETATE 667MG CAPSULE PO SCH ×5 (08:52→17:24)
[2023-07-10] MEDS ORDERED: IOHEXOL-300 50 ML BOTTLE IV ONE ×2 (09:00→11:17)
[2023-07-10] MEDS: MENTHOL/LANOLIN/CALAMINE/ZN OX OINT 71GM TOP SCH ×2 (09:00→16:23)
[2023-07-10] MEDS: MORPHINE SULFATE 2 MG/ML CPJ (NOT FOR IM USE) IV PRN (10:33)
[2023-07-10] MEDS: INSULIN GLARGINE 100 UNITS/ML SUBCUT SCH ×2 (10:36→21:16)
[2023-07-10 13:59] LABS: CSF APPEARANCE CLEAR (CLEAR)
[2023-07-10 14:00] LABS: CSF WHITE BLOOD CELL 0 /cu mm (0-10)
[2023-07-10 16:00] VITALS: BP 111/62; PULSE 92; RESP 18; TEMP 97.3
[2023-07-10 20:00] VITALS: BP 127/69; PULSE 95; RESP 22; TEMP 97.3
[2023-07-10] MEDS: MEROPENEM 500 MG in SODIUM CHLORIDE 0.9% 50 ML IV SCH (21:15)
[2023-07-10 22:00] VITALS: BP 127/53; PULSE 97; RESP 18
[2023-07-10 23:57] VITALS: BP 130/61; PULSE 97; RESP 20; TEMP 97.8
[2023-07-11] VITALS (19 sets, daily range): BP systolic 99–150; BP diastolic 48–69; PULSE 90–105; RESP 18–25; TEMP 97–100
[2023-07-11 07:21] LABS: BASOPHILS % 0.4 % (0.0-2.0); EOSINOPHILS % 0.6 % (0.0-5.0); HEMATOCRIT. 26.7 % (42.0-52.0); HEMOGLOBIN. 8.8 g/dL (14.0-18.0); LYMPHOCYTES % 8.1 % (20.0-50.0); MEAN CORPUSCULAR HEMOGLOBIN 26.8 pg (28.0-32.0); MEAN CORPUSCULAR HGB CONC 32.9 g/dL (31.0-37.0); MEAN CORPUSCULAR VOLUME 81.7 fL (80.0-94.0); MEAN PLATELET VOLUME 9.3 fl (7.4-10.4); MONOCYTES % 11.7 % (2.0-8.0); NEUTROPHILS % 79.2 % (40.0-76.0); PLATELET 288 x1000/uL (130-400); RED BLOOD CELL COUNT 3.27 mill/uL (4.7-6.1); RED CELL DISTRIBUTION WIDTH 16.9 % (11.6-14.6); WHITE BLOOD COUNT 7.5 x1000/uL (4.5-11.0)
[2023-07-11 07:29] LABS: POTASSIUM 3.9 mEq/L (3.5-5.1)
[2023-07-11] MEDS: BLOOD SUGAR DIAGNOSTIC STRIP TEST SCH ×4 (07:30→20:47)
[2023-07-11] MEDS: INSULIN LISPRO 100 UNITS/ML SUBCUT SCH ×7 (07:30→20:47)
[2023-07-11] MEDS: MENTHOL/LANOLIN/CALAMINE/ZN OX OINT 71GM TOP SCH ×2 (09:00→17:00)
[2023-07-11 09:09] LABS: CREATININE 5.7 mg/dL (0.6-1.3)
[2023-07-11] MEDS: CALCIUM ACETATE 667MG CAPSULE PO SCH ×3 (09:53→18:00)
[2023-07-11] MEDS: PANTOPRAZOLE SODIUM 40 MG/VIAL IV SCH ×2 (09:53→18:42)
[2023-07-11] MEDS: METOPROLOL TARTRATE 100MG TABLET PO SCH ×2 (09:54→20:53)
[2023-07-11] MEDS: INSULIN GLARGINE 100 UNITS/ML SUBCUT SCH ×2 (09:58→21:33)
[2023-07-11] MEDS: ENOXAPARIN 40MG/0.4ML SYR SUBCUT SCH (10:00)
[2023-07-11] MEDS: MEROPENEM 500 MG in SODIUM CHLORIDE 0.9% 50 ML IV SCH (20:50)
[2023-07-12] VITALS (12 sets, daily range): BP systolic 100–131; BP diastolic 48–95; PULSE 98–116; RESP 20–34; TEMP 96.6–99.9
[2023-07-12] MEDS: INSULIN LISPRO 100 UNITS/ML SUBCUT SCH ×7 (07:30→21:00)
[2023-07-12] MEDS: BLOOD SUGAR DIAGNOSTIC STRIP TEST SCH ×4 (07:55→21:31)
[2023-07-12] MEDS: CALCIUM ACETATE 667MG CAPSULE PO SCH ×3 (08:04→17:39)
[2023-07-12 08:07] LABS: CALCIUM 6.9 mg/dL (8.7-10.4); CREATININE 4.1 mg/dL (0.6-1.3); POTASSIUM 4.1 mEq/L (3.5-5.1)
[2023-07-12 08:50] LABS: BASOPHILS % 0.3 % (0.0-2.0); EOSINOPHILS % 0.1 % (0.0-5.0); HEMATOCRIT. 26.7 % (42.0-52.0); HEMOGLOBIN. 8.6 g/dL (14.0-18.0); LYMPHOCYTES % 7.1 % (20.0-50.0); MEAN CORPUSCULAR HEMOGLOBIN 26.3 pg (28.0-32.0); MEAN CORPUSCULAR HGB CONC 32.2 g/dL (31.0-37.0); MEAN CORPUSCULAR VOLUME 81.5 fL (80.0-94.0); MEAN PLATELET VOLUME 9.3 fl (7.4-10.4); MONOCYTES % 11.1 % (2.0-8.0); NEUTROPHILS % 81.4 % (40.0-76.0); PLATELET 268 x1000/uL (130-400); RED BLOOD CELL COUNT 3.27 mill/uL (4.7-6.1)
[2023-07-12 08:57] LABS: WHITE BLOOD COUNT 8.5 x1000/uL (4.5-11.0)
[2023-07-12] MEDS: PANTOPRAZOLE SODIUM 40 MG/VIAL IV SCH ×2 (09:31→17:01)
[2023-07-12] MEDS: ENOXAPARIN 40MG/0.4ML SYR SUBCUT SCH (09:32)
[2023-07-12] MEDS: METOPROLOL TARTRATE 100MG TABLET PO SCH ×2 (09:32→20:26)
[2023-07-12] MEDS: MENTHOL/LANOLIN/CALAMINE/ZN OX OINT 71GM TOP SCH ×2 (09:32→17:01)
[2023-07-12] MEDS: INSULIN GLARGINE 100 UNITS/ML SUBCUT SCH ×2 (10:02→22:48)
[2023-07-12] MEDS: MORPHINE SULFATE 2 MG/ML CPJ (NOT FOR IM USE) IV PRN (10:49)
[2023-07-12 20:05] LABS: GLUCOSE CSF 71 mg/dL (41-75)
[2023-07-12] MEDS: MEROPENEM 500 MG in SODIUM CHLORIDE 0.9% 50 ML IV SCH (21:32)
[2023-07-13] VITALS: BP 106/48; PULSE 102; RESP 20; TEMP 97.5
[2023-07-13 04:00] VITALS: BP 102/42; PULSE 101; RESP 20; TEMP 97.7
[2023-07-13] MEDS: CALCIUM ACETATE 667MG CAPSULE PO SCH ×3 (07:00→17:50)
[2023-07-13] MEDS: BLOOD SUGAR DIAGNOSTIC STRIP TEST SCH ×4 (07:20→21:33)
[2023-07-13] MEDS: INSULIN LISPRO 100 UNITS/ML SUBCUT SCH ×7 (07:20→21:00)
[2023-07-13 08:00] VITALS: BP 102/56; PULSE 105; RESP 19; TEMP 98.7
[2023-07-13] MEDS: ENOXAPARIN 40MG/0.4ML SYR SUBCUT SCH (09:00)
[2023-07-13] MEDS: METOPROLOL TARTRATE 100MG TABLET PO SCH ×2 (09:00→20:50)
[2023-07-13] MEDS: PANTOPRAZOLE SODIUM 40 MG/VIAL IV SCH ×2 (09:00→18:04)
[2023-07-13] MEDS: MENTHOL/LANOLIN/CALAMINE/ZN OX OINT 71GM TOP SCH ×2 (09:00→17:00)
[2023-07-13] MEDS: ACETAMINOPHEN 325MG TABLET PO PRN ×2 (11:06→17:19)
[2023-07-13 11:31] LABS: HEMOGLOBIN. 7.8 g/dL (14.0-18.0); MEAN CORPUSCULAR HEMOGLOBIN 26.3 pg (28.0-32.0); MEAN CORPUSCULAR HGB CONC 31.2 g/dL (31.0-37.0); MEAN CORPUSCULAR VOLUME 84.2 fL (80.0-94.0); MEAN PLATELET VOLUME 9.6 fl (7.4-10.4); PLATELET 243 x1000/uL (130-400); RED BLOOD CELL COUNT 2.97 mill/uL (4.7-6.1); RED CELL DISTRIBUTION WIDTH 16.8 % (11.6-14.6); WHITE BLOOD COUNT 9.8 x1000/uL (4.5-11.0)
[2023-07-13 11:50] LABS: DIFFERENTIAL COMMENT 1
[2023-07-13 11:57] LABS: CALCIUM 7.6 mg/dL (8.7-10.4); POTASSIUM 3.7 mEq/L (3.5-5.1)
[2023-07-13 12:00] VITALS: BP 102/51; PULSE 111; RESP 20; TEMP 98.9
[2023-07-13 13:09] LABS: ANISOCYTOSIS 1+; PLATELET ESTIMATE NORMAL
[2023-07-13 14:03] LABS: CALCIUM 7.7 mg/dL (8.7-10.4); CREATININE 3.9 mg/dL (0.6-1.3)
[2023-07-13 16:00] VITALS: BP 109/56; PULSE 120; RESP 20; TEMP 95.6
[2023-07-13 20:00] VITALS: BP 102/59; PULSE 90; RESP 18; TEMP 96.4
[2023-07-13] MEDS: MEROPENEM 500 MG in SODIUM CHLORIDE 0.9% 50 ML IV SCH (21:34)
[2023-07-13] MEDS: INSULIN GLARGINE 100 UNITS/ML SUBCUT SCH (21:46)
[2023-07-14] VITALS (8 sets, daily range): BP systolic 99–108; BP diastolic 39–58; PULSE 62–120; RESP 18–20; TEMP 96.7–101.1
[2023-07-14] MEDS: BLOOD SUGAR DIAGNOSTIC STRIP TEST SCH ×4 (07:16→20:32)
[2023-07-14] MEDS: INSULIN LISPRO 100 UNITS/ML SUBCUT SCH ×7 (07:20→21:00)
[2023-07-14 07:46] LABS: BASOPHILS % 0.2 % (0.0-2.0); EOSINOPHILS % 0.4 % (0.0-5.0); HEMATOCRIT. 25.3 % (42.0-52.0); LYMPHOCYTES % 7.3 % (20.0-50.0); MEAN CORPUSCULAR HEMOGLOBIN 26.8 pg (28.0-32.0); MEAN CORPUSCULAR HGB CONC 31.7 g/dL (31.0-37.0); MEAN CORPUSCULAR VOLUME 84.6 fL (80.0-94.0); MEAN PLATELET VOLUME 9.8 fl (7.4-10.4); MONOCYTES % 11.5 % (2.0-8.0); NEUTROPHILS % 80.6 % (40.0-76.0); PLATELET 262 x1000/uL (130-400); RED BLOOD CELL COUNT 2.99 mill/uL (4.7-6.1); RED CELL DISTRIBUTION WIDTH 16.5 % (11.6-14.6); WHITE BLOOD COUNT 10.3 x1000/uL (4.5-11.0)
[2023-07-14 08:04] LABS: CALCIUM 7.8 mg/dL (8.7-10.4); CREATININE 3.4 mg/dL (0.6-1.3); POTASSIUM 3.5 mEq/L (3.5-5.1)
[2023-07-14] MEDS: METOPROLOL TARTRATE 100MG TABLET PO SCH ×2 (08:41→20:32)
[2023-07-14] MEDS: MENTHOL/LANOLIN/CALAMINE/ZN OX OINT 71GM TOP SCH ×2 (08:48→17:14)
[2023-07-14] MEDS: CALCIUM ACETATE 667MG CAPSULE PO SCH ×3 (08:49→17:11)
[2023-07-14] MEDS: PANTOPRAZOLE SODIUM 40 MG/VIAL IV SCH ×2 (08:49→17:11)
[2023-07-14] MEDS: ENOXAPARIN 40MG/0.4ML SYR SUBCUT SCH (10:16)
[2023-07-14] MEDS: INSULIN GLARGINE 100 UNITS/ML SUBCUT SCH ×2 (10:17→22:44)
[2023-07-14] MEDS: ACETAMINOPHEN 325MG TABLET PO PRN (17:12)
[2023-07-14] MEDS: MEROPENEM 500 MG in SODIUM CHLORIDE 0.9% 50 ML IV SCH (20:33)
[2023-07-15] VITALS (8 sets, daily range): BP systolic 101–111; BP diastolic 50–56; PULSE 106–120; RESP 18–20; TEMP 95.2–102.2
[2023-07-15] MEDS: INSULIN LISPRO 100 UNITS/ML SUBCUT SCH ×7 (05:57→21:47)
[2023-07-15] MEDS: BLOOD SUGAR DIAGNOSTIC STRIP TEST SCH ×4 (05:57→20:39)
[2023-07-15 07:04] LABS: HEMATOCRIT. 24.6 % (42.0-52.0); MEAN CORPUSCULAR HEMOGLOBIN 26.8 pg (28.0-32.0); MEAN CORPUSCULAR HGB CONC 32.4 g/dL (31.0-37.0); MEAN CORPUSCULAR VOLUME 82.8 fL (80.0-94.0); MEAN PLATELET VOLUME 9.8 fl (7.4-10.4); PLATELET 265 x1000/uL (130-400); RED BLOOD CELL COUNT 2.97 mill/uL (4.7-6.1); RED CELL DISTRIBUTION WIDTH 16.6 % (11.6-14.6); WHITE BLOOD COUNT 11.5 x1000/uL (4.5-11.0)
[2023-07-15 07:23] LABS: DIFFERENTIAL COMMENT 1
[2023-07-15 07:47] LABS: CREATININE 2.7 mg/dL (0.6-1.3); POTASSIUM 3.5 mEq/L (3.5-5.1)
[2023-07-15] MEDS: CALCIUM ACETATE 667MG CAPSULE PO SCH ×2 (10:09→19:01)
[2023-07-15] MEDS: ENOXAPARIN 40MG/0.4ML SYR SUBCUT SCH (10:10)
[2023-07-15] MEDS: METOPROLOL TARTRATE 100MG TABLET PO SCH ×2 (10:10→21:51)
[2023-07-15] MEDS: PANTOPRAZOLE SODIUM 40 MG/VIAL IV SCH ×2 (10:10→19:02)
[2023-07-15] MEDS: MENTHOL/LANOLIN/CALAMINE/ZN OX OINT 71GM TOP SCH ×2 (10:11→19:03)
[2023-07-15] MEDS: INSULIN GLARGINE 100 UNITS/ML SUBCUT SCH ×2 (10:13→22:48)
[2023-07-15] MEDS: ACETAMINOPHEN 325MG TABLET PO PRN (10:54)
[2023-07-15 16:15] LABS: ANISOCYTOSIS 1+; PLATELET ESTIMATE NORMAL
[2023-07-15] MEDS: MEROPENEM 500 MG in SODIUM CHLORIDE 0.9% 50 ML IV SCH (21:34)
[2023-07-16] VITALS: BP 100/46; PULSE 99; RESP 20; TEMP 96.5
[2023-07-16 04:00] VITALS: BP 129/53; PULSE 105; RESP 20; TEMP 97.7
[2023-07-16 06:34] LABS: COCCIDIOIDES AB CF - CSF <1:2 (<1:2)
[2023-07-16] MEDS: BLOOD SUGAR DIAGNOSTIC STRIP TEST SCH ×4 (06:52→21:31)
[2023-07-16] MEDS: INSULIN LISPRO 100 UNITS/ML SUBCUT SCH ×7 (06:54→21:00)
[2023-07-16] MEDS: CALCIUM ACETATE 667MG CAPSULE PO SCH ×3 (07:00→17:34)
[2023-07-16 08:00] VITALS: BP 96/49; PULSE 109; RESP 18; TEMP 98.1
[2023-07-16] MEDS: METOPROLOL TARTRATE 100MG TABLET PO SCH ×2 (09:00→21:35)
[2023-07-16] MEDS: ENOXAPARIN 40MG/0.4ML SYR SUBCUT SCH (10:52)
[2023-07-16] MEDS: INSULIN GLARGINE 100 UNITS/ML SUBCUT SCH ×2 (10:55→22:00)
[2023-07-16] MEDS: PANTOPRAZOLE SODIUM 40 MG/VIAL IV SCH ×2 (10:56→17:35)
[2023-07-16 12:00] VITALS: BP 98/44; PULSE 109; RESP 19; TEMP 96.9
[2023-07-16] MEDS: MENTHOL/LANOLIN/CALAMINE/ZN OX OINT 71GM TOP SCH ×2 (13:22→17:35)
[2023-07-16 16:00] VITALS: BP 104/59; PULSE 111; RESP 18; TEMP 99.1
[2023-07-16] MEDS: ACETAMINOPHEN 325MG TABLET PO PRN (21:35)
[2023-07-16] MEDS: MEROPENEM 500 MG in SODIUM CHLORIDE 0.9% 50 ML IV SCH (21:43)
[2023-07-16] MEDS ORDERED: ACETAMINOPHEN 325MG TABLET PO NR (23:45)
[2023-07-17] VITALS (15 sets, daily range): BP systolic 97–124; BP diastolic 41–80; PULSE 88–109; RESP 19–24; TEMP 96.1–99.7
[2023-07-17] MEDS: BLOOD SUGAR DIAGNOSTIC STRIP TEST SCH ×4 (06:58→21:12)
[2023-07-17] MEDS: INSULIN LISPRO 100 UNITS/ML SUBCUT SCH ×6 (07:06→17:50)
[2023-07-17 08:13] LABS: CALCIUM 8.5 mg/dL (8.7-10.4); CREATININE 1.9 mg/dL (0.6-1.3); POTASSIUM 3.7 mEq/L (3.5-5.1)
[2023-07-17] MEDS: PANTOPRAZOLE SODIUM 40 MG/VIAL IV SCH ×2 (08:59→16:56)
[2023-07-17] MEDS: CALCIUM ACETATE 667MG CAPSULE PO SCH ×3 (08:59→16:56)
[2023-07-17] MEDS: METOPROLOL TARTRATE 100MG TABLET PO SCH ×2 (09:01→21:11)
[2023-07-17 10:19] LABS: HEMATOCRIT. 22.5 % (42.0-52.0); MEAN CORPUSCULAR HEMOGLOBIN 26.1 pg (28.0-32.0); MEAN CORPUSCULAR HGB CONC 31.1 g/dL (31.0-37.0); PLATELET 310 x1000/uL (130-400); RED BLOOD CELL COUNT 2.68 mill/uL (4.7-6.1); WHITE BLOOD COUNT 13.7 x1000/uL (4.5-11.0)
[2023-07-17 10:45] LABS: DIFFERENTIAL COMMENT 1
[2023-07-17] MEDS: INSULIN GLARGINE 100 UNITS/ML SUBCUT SCH ×2 (11:57→21:39)
[2023-07-17 14:17] LABS: CREATINE KINASE 35 IU/L (46-171)
[2023-07-17 16:08] LABS: ANISOCYTOSIS 1+; HYPOCHROMASIA 1+; PLATELET ESTIMATE NORMAL
[2023-07-17 21:01] LABS: HEMATOCRIT 25.3 % (42.0-52.0); HEMOGLOBIN 8.1 g/dL (14.0-18.0)
[2023-07-17] MEDS: MEROPENEM 500 MG in SODIUM CHLORIDE 0.9% 50 ML IV SCH (21:11)
[2023-07-17 21:30] LABS: INR 1.3; PROTHROMBIN TIME 13.3 sec (9.6-11.0)
[2023-07-18] VITALS: BP 107/54; PULSE 96; RESP 18; TEMP 98.7
[2023-07-18 04:00] VITALS: BP 115/63; PULSE 80; RESP 20; TEMP 97.1
[2023-07-18] MEDS: INSULIN LISPRO 100 UNITS/ML SUBCUT SCH ×7 (07:20→20:57)
[2023-07-18] MEDS: BLOOD SUGAR DIAGNOSTIC STRIP TEST SCH ×4 (07:20→21:00)
[2023-07-18 07:28] LABS: BASOPHILS % 0.2 % (0.0-2.0); DIFFERENTIAL COMMENT 0; EOSINOPHILS % 0.3 % (0.0-5.0); HEMATOCRIT. 23.8 % (42.0-52.0); HEMOGLOBIN. 7.6 g/dL (14.0-18.0); LYMPHOCYTES % 8.9 % (20.0-50.0); MEAN CORPUSCULAR HGB CONC 31.8 g/dL (31.0-37.0); MEAN CORPUSCULAR VOLUME 84.9 fL (80.0-94.0); MEAN PLATELET VOLUME 9.8 fl (7.4-10.4); MONOCYTES % 10.6 % (2.0-8.0); PLATELET 321 x1000/uL (130-400); RED CELL DISTRIBUTION WIDTH 16.9 % (11.6-14.6); WHITE BLOOD COUNT 12.7 x1000/uL (4.5-11.0)
[2023-07-18 08:00] VITALS: BP 107/52; PULSE 97; RESP 20; TEMP 99
[2023-07-18 08:52] LABS: CALCIUM 8.2 mg/dL (8.7-10.4); CARBON DIOXIDE 28 mEq/L (21-32); CHLORIDE 112 mEq/L (98-107); CREATININE 1.3 mg/dL (0.6-1.3); GLUCOSE 127 mg/dL (70-105); POTASSIUM 3.6 mEq/L (3.5-5.1); SODIUM 148 mEq/L (136-145); UREA NITROGEN BLOOD 57 mg/dL (9-23)
[2023-07-18] MEDS: METOPROLOL TARTRATE 100MG TABLET PO SCH ×2 (09:00→20:53)
[2023-07-18] MEDS: MENTHOL/LANOLIN/CALAMINE/ZN OX OINT 71GM TOP SCH ×2 (09:00→17:00)
[2023-07-18] MEDS: CALCIUM ACETATE 667MG CAPSULE PO SCH ×3 (09:26→17:01)
[2023-07-18] MEDS: PANTOPRAZOLE SODIUM 40 MG/VIAL IV SCH ×2 (09:26→17:10)
[2023-07-18] MEDS: INSULIN GLARGINE 100 UNITS/ML SUBCUT SCH (10:00)
[2023-07-18 12:00] VITALS: BP 142/55; PULSE 97; RESP 18; TEMP 98.8
[2023-07-18 15:52] VITALS: BP 102/55; PULSE 104; RESP 20; TEMP 98.3
[2023-07-18 20:00] VITALS: BP 110/57; PULSE 107; RESP 19; TEMP 97
[2023-07-18] MEDS: MEROPENEM 500 MG in SODIUM CHLORIDE 0.9% 50 ML IV SCH (20:52)
[2023-07-19] VITALS: BP 114/65; PULSE 104; RESP 16; TEMP 98.8
[2023-07-19] MEDS: INSULIN GLARGINE 100 UNITS/ML SUBCUT SCH ×3 (00:09→22:00)
[2023-07-19 04:00] VITALS: BP 117/66; PULSE 115; RESP 19; TEMP 97.4
[2023-07-19] MEDS: INSULIN LISPRO 100 UNITS/ML SUBCUT SCH ×6 (04:53→21:00)
[2023-07-19] MEDS: BLOOD SUGAR DIAGNOSTIC STRIP TEST SCH ×4 (06:39→21:00)
[2023-07-19 08:00] VITALS: BP 118/65; PULSE 110; RESP 18; TEMP 97.5
[2023-07-19] MEDS: PANTOPRAZOLE SODIUM 40 MG/VIAL IV SCH ×2 (09:55→17:34)
[2023-07-19] MEDS: CALCIUM ACETATE 667MG CAPSULE PO SCH ×3 (09:56→17:35)
[2023-07-19] MEDS: METOPROLOL TARTRATE 100MG TABLET PO SCH (09:56)
[2023-07-19] MEDS: MENTHOL/LANOLIN/CALAMINE/ZN OX OINT 71GM TOP SCH ×2 (09:57→17:34)
[2023-07-19 12:00] VITALS: BP 124/62; PULSE 99; RESP 18; TEMP 97.4
[2023-07-19 16:00] VITALS: BP 120/66; PULSE 110; RESP 18; TEMP 97.7
[2023-07-19 20:00] VITALS: BP 114/62; PULSE 113; RESP 17; TEMP 97.5
[2023-07-19] MEDS: MEROPENEM 500 MG in SODIUM CHLORIDE 0.9% 50 ML IV SCH (21:36)
[2023-07-20] VITALS: BP 116/66; PULSE 82; RESP 19; TEMP 97.8
[2023-07-20 04:00] VITALS: BP 110/61; PULSE 118; RESP 20; TEMP 99.3
[2023-07-20 07:14] LABS: BASOPHILS % 0.1 % (0.0-2.0); DIFFERENTIAL COMMENT 0; EOSINOPHILS % 0.1 % (0.0-5.0); HEMATOCRIT. 23.7 % (42.0-52.0); HEMOGLOBIN. 7.6 g/dL (14.0-18.0); LYMPHOCYTES % 8.5 % (20.0-50.0); MEAN CORPUSCULAR HEMOGLOBIN 27.2 pg (28.0-32.0); MEAN CORPUSCULAR HGB CONC 32.2 g/dL (31.0-37.0); MEAN CORPUSCULAR VOLUME 84.5 fL (80.0-94.0); MEAN PLATELET VOLUME 9.8 fl (7.4-10.4); MONOCYTES % 7.5 % (2.0-8.0); NEUTROPHILS % 83.8 % (40.0-76.0); PLATELET 340 x1000/uL (130-400); RED CELL DISTRIBUTION WIDTH 17.2 % (11.6-14.6); WHITE BLOOD COUNT 16.5 x1000/uL (4.5-11.0)
[2023-07-20] MEDS: BLOOD SUGAR DIAGNOSTIC STRIP TEST SCH ×4 (07:20→21:40)
[2023-07-20] MEDS: CALCIUM ACETATE 667MG CAPSULE PO SCH ×3 (07:50→17:58)
[2023-07-20] MEDS: INSULIN LISPRO 100 UNITS/ML SUBCUT SCH ×4 (07:50→21:40)
[2023-07-20 08:00] VITALS: BP 110/62; PULSE 117; RESP 17; TEMP 97.6
[2023-07-20] MEDS: METOPROLOL TARTRATE 100MG TABLET PO SCH ×2 (09:00→21:00)
[2023-07-20] MEDS: MENTHOL/LANOLIN/CALAMINE/ZN OX OINT 71GM TOP SCH ×2 (09:00→17:57)
[2023-07-20] MEDS: PANTOPRAZOLE SODIUM 40 MG/VIAL IV SCH ×2 (09:00→17:57)
[2023-07-20] MEDS: INSULIN GLARGINE 100 UNITS/ML SUBCUT SCH ×2 (10:00→21:39)
[2023-07-20 12:00] VITALS: BP 119/65; PULSE 108; RESP 18; TEMP 98
[2023-07-20 16:00] VITALS: BP 115/63; PULSE 116; RESP 18; TEMP 97.7
[2023-07-20 17:55] LABS: CALCIUM 8.1 mg/dL (8.7-10.4); CARBON DIOXIDE 27 mEq/L (21-32); CHLORIDE 111 mEq/L (98-107); CREATININE 1.1 mg/dL (0.6-1.3); GLUCOSE 138 mg/dL (70-105); POTASSIUM 4.1 mEq/L (3.5-5.1); SODIUM 144 mEq/L (136-145); UREA NITROGEN BLOOD 45 mg/dL (9-23)
[2023-07-20 20:00] VITALS: BP 110/60; PULSE 113; RESP 22; TEMP 100.4
[2023-07-20] MEDS: MEROPENEM 500 MG in SODIUM CHLORIDE 0.9% 50 ML IV SCH (21:40)
[2023-07-21] VITALS: BP 110/62; PULSE 113; RESP 18; TEMP 98.8
[2023-07-21 04:00] VITALS: BP 111/63; PULSE 112; RESP 18; TEMP 98.3
[2023-07-21 06:42] LABS: HEMATOCRIT. 22.3 % (42.0-52.0); HEMOGLOBIN. 7.2 g/dL (14.0-18.0); MEAN CORPUSCULAR HGB CONC 32.1 g/dL (31.0-37.0); MEAN CORPUSCULAR VOLUME 83.9 fL (80.0-94.0); PLATELET 303 x1000/uL (130-400); RED BLOOD CELL COUNT 2.66 mill/uL (4.7-6.1); RED CELL DISTRIBUTION WIDTH 17.3 % (11.6-14.6); WHITE BLOOD COUNT 15.8 x1000/uL (4.5-11.0)
[2023-07-21 06:55] LABS: ALANINE AMINOTRANSFERASE 34 IU/L (10-49); ALBUMIN 2.5 g/dL (3.2-4.8); ASPARTATE AMINOTRANSFERASE 28 IU/L (<34); BILIRUBIN TOTAL 0.4 mg/dL (0.1-1.0); CALCIUM 8.2 mg/dL (8.7-10.4); CARBON DIOXIDE 26 mEq/L (21-32); CHLORIDE 109 mEq/L (98-107); CREATININE 0.8 mg/dL (0.6-1.3); GLUCOSE 114 mg/dL (70-105); POTASSIUM 3.7 mEq/L (3.5-5.1); PROTEIN TOTAL 6.3 g/dL (6.0-8.3); SODIUM 143 mEq/L (136-145); UREA NITROGEN BLOOD 30 mg/dL (9-23)
[2023-07-21] MEDS: INSULIN LISPRO 100 UNITS/ML SUBCUT SCH ×4 (07:50→21:00)
[2023-07-21 08:00] VITALS: BP 119/70; PULSE 114; RESP 20; TEMP 97.6
[2023-07-21] MEDS: BLOOD SUGAR DIAGNOSTIC STRIP TEST SCH ×4 (08:12→21:00)
[2023-07-21] MEDS: CALCIUM ACETATE 667MG CAPSULE PO SCH ×3 (08:39→18:01)
[2023-07-21] MEDS: PANTOPRAZOLE SODIUM 40 MG/VIAL IV SCH ×2 (08:39→18:00)
[2023-07-21] MEDS: MENTHOL/LANOLIN/CALAMINE/ZN OX OINT 71GM TOP SCH ×2 (08:40→17:00)
[2023-07-21] MEDS: METOPROLOL TARTRATE 100MG TABLET PO SCH ×2 (08:40→21:00)
[2023-07-21] MEDS: INSULIN GLARGINE 100 UNITS/ML SUBCUT SCH ×2 (10:48→22:33)
[2023-07-21 12:17] VITALS: BP 110/62; PULSE 94; RESP 19; TEMP 97.9
[2023-07-21 16:05] VITALS: BP 111/60; PULSE 109; RESP 19; TEMP 97.1
[2023-07-21 20:00] VITALS: BP 105/63; PULSE 114; RESP 20; TEMP 97.9
[2023-07-21] MEDS: MEROPENEM 500 MG in SODIUM CHLORIDE 0.9% 50 ML IV SCH (22:31)
[2023-07-22] VITALS (9 sets, daily range): BP systolic 107–120; BP diastolic 54–66; PULSE 116–121; RESP 16–20; TEMP 97.7–98.8
[2023-07-22 07:29] LABS: HEMATOCRIT. 22.8 % (42.0-52.0); HEMOGLOBIN. 7.2 g/dL (14.0-18.0); MEAN CORPUSCULAR HGB CONC 31.6 g/dL (31.0-37.0); MEAN CORPUSCULAR VOLUME 85.4 fL (80.0-94.0); PLATELET 320 x1000/uL (130-400); RED BLOOD CELL COUNT 2.66 mill/uL (4.7-6.1); RED CELL DISTRIBUTION WIDTH 17.4 % (11.6-14.6); WHITE BLOOD COUNT 15.8 x1000/uL (4.5-11.0)
[2023-07-22] MEDS: BLOOD SUGAR DIAGNOSTIC STRIP TEST SCH ×4 (07:31→21:43)
[2023-07-22] MEDS: INSULIN LISPRO 100 UNITS/ML SUBCUT SCH ×4 (07:32→21:00)
[2023-07-22 07:51] LABS: DIFFERENTIAL COMMENT 1
[2023-07-22] MEDS: PANTOPRAZOLE SODIUM 40 MG/VIAL IV SCH ×2 (08:23→17:39)
[2023-07-22] MEDS: CALCIUM ACETATE 667MG CAPSULE PO SCH ×3 (08:23→17:39)
[2023-07-22] MEDS: MENTHOL/LANOLIN/CALAMINE/ZN OX OINT 71GM TOP SCH ×2 (08:23→17:39)
[2023-07-22 08:29] LABS: ALANINE AMINOTRANSFERASE 40 IU/L (10-49); ALBUMIN 2.5 g/dL (3.2-4.8); ASPARTATE AMINOTRANSFERASE 34 IU/L (<34); BILIRUBIN TOTAL 0.3 mg/dL (0.1-1.0); CALCIUM 8.6 mg/dL (8.7-10.4); CARBON DIOXIDE 28 mEq/L (21-32); CHLORIDE 108 mEq/L (98-107); CREATININE 0.6 mg/dL (0.6-1.3); GLUCOSE 105 mg/dL (70-105); POTASSIUM 3.5 mEq/L (3.5-5.1); PROTEIN TOTAL 5.8 g/dL (6.0-8.3); SODIUM 141 mEq/L (136-145); UREA NITROGEN BLOOD 25 mg/dL (9-23)
[2023-07-22] MEDS: INSULIN GLARGINE 100 UNITS/ML SUBCUT SCH ×2 (10:19→22:01)
[2023-07-22 11:33] LABS: ANISOCYTOSIS 1+; PLATELET ESTIMATE NORMAL
[2023-07-22 11:41] LABS: ANISOCYTOSIS 1+; PLATELET ESTIMATE NORMAL
[2023-07-22] MEDS: MEROPENEM 500 MG in SODIUM CHLORIDE 0.9% 50 ML IV SCH (21:43)
[2023-07-23] VITALS: BP 118/67; PULSE 114; RESP 18; TEMP 98.1
[2023-07-23 04:00] VITALS: BP 111/67; PULSE 112; RESP 18; TEMP 97.4
[2023-07-23] MEDS: BLOOD SUGAR DIAGNOSTIC STRIP TEST SCH ×2 (07:20→21:00)
[2023-07-23] MEDS: INSULIN LISPRO 100 UNITS/ML SUBCUT SCH ×3 (07:50→17:50)
[2023-07-23 08:00] VITALS: BP 113/59; PULSE 106; RESP 17; TEMP 96.9
[2023-07-23 08:03] LABS: DIFFERENTIAL COMMENT 0; HEMATOCRIT. 23.6 % (42.0-52.0); HEMOGLOBIN. 7.6 g/dL (14.0-18.0); MEAN CORPUSCULAR HEMOGLOBIN 27.8 pg (28.0-32.0); MEAN CORPUSCULAR HGB CONC 32.2 g/dL (31.0-37.0); MEAN CORPUSCULAR VOLUME 86.2 fL (80.0-94.0); PLATELET 309 x1000/uL (130-400); RED BLOOD CELL COUNT 2.74 mill/uL (4.7-6.1); RED CELL DISTRIBUTION WIDTH 17.5 % (11.6-14.6); WHITE BLOOD COUNT 13.5 x1000/uL (4.5-11.0)
[2023-07-23] MEDS: MENTHOL/LANOLIN/CALAMINE/ZN OX OINT 71GM TOP SCH (09:00)
[2023-07-23] MEDS: PANTOPRAZOLE SODIUM 40 MG/VIAL IV SCH ×2 (09:04→18:06)
[2023-07-23] MEDS: CALCIUM ACETATE 667MG CAPSULE PO SCH ×3 (09:04→18:07)
[2023-07-23] MEDS: ACETAMINOPHEN 325MG TABLET PO PRN (09:30)
[2023-07-23] MEDS: INSULIN GLARGINE 100 UNITS/ML SUBCUT SCH ×2 (09:30→22:33)
[2023-07-23 09:45] LABS: ALANINE AMINOTRANSFERASE 44 IU/L (10-49); ALBUMIN 2.5 g/dL (3.2-4.8); ASPARTATE AMINOTRANSFERASE 31 IU/L (<34); BILIRUBIN TOTAL 0.3 mg/dL (0.1-1.0); CALCIUM 8.5 mg/dL (8.7-10.4); CARBON DIOXIDE 28 mEq/L (21-32); CHLORIDE 105 mEq/L (98-107); CREATININE 0.6 mg/dL (0.6-1.3); GLUCOSE 99 mg/dL (70-105); POTASSIUM 3.5 mEq/L (3.5-5.1); PROTEIN TOTAL 5.5 g/dL (6.0-8.3); SODIUM 140 mEq/L (136-145); UREA NITROGEN BLOOD 22 mg/dL (9-23)
[2023-07-23 12:00] VITALS: BP 117/64; PULSE 116; RESP 18; TEMP 97.5
[2023-07-23 15:50] LABS: ANISOCYTOSIS 1+; PLATELET ESTIMATE NORMAL
[2023-07-23 16:00] VITALS: BP 99/50; PULSE 118; RESP 18; TEMP 96.9
[2023-07-23 20:00] VITALS: BP 125/72; PULSE 114; RESP 20; TEMP 97.9
[2023-07-24] VITALS: BP 117/68; PULSE 116; RESP 18; TEMP 98.8
[2023-07-24 04:00] VITALS: BP 118/59; PULSE 112; RESP 18; TEMP 97.9
[2023-07-24 06:50] LABS: HEMATOCRIT. 23.6 % (42.0-52.0); HEMOGLOBIN. 7.8 g/dL (14.0-18.0); MEAN CORPUSCULAR HEMOGLOBIN 27.8 pg (28.0-32.0); MEAN CORPUSCULAR HGB CONC 32.9 g/dL (31.0-37.0); MEAN CORPUSCULAR VOLUME 84.6 fL (80.0-94.0); MEAN PLATELET VOLUME 9.4 fl (7.4-10.4); PLATELET 308 x1000/uL (130-400); RED BLOOD CELL COUNT 2.79 mill/uL (4.7-6.1); RED CELL DISTRIBUTION WIDTH 17.3 % (11.6-14.6); WHITE BLOOD COUNT 12.7 x1000/uL (4.5-11.0)
[2023-07-24 07:18] LABS: ALANINE AMINOTRANSFERASE 46 IU/L (10-49); ALBUMIN 2.5 g/dL (3.2-4.8); ASPARTATE AMINOTRANSFERASE 29 IU/L (<34); BILIRUBIN TOTAL 0.4 mg/dL (0.1-1.0); CALCIUM 8.2 mg/dL (8.7-10.4); CARBON DIOXIDE 27 mEq/L (21-32); CHLORIDE 107 mEq/L (98-107); CREATININE 0.5 mg/dL (0.6-1.3); GLUCOSE 101 mg/dL (70-105); POTASSIUM 3.5 mEq/L (3.5-5.1); SODIUM 142 mEq/L (136-145); UREA NITROGEN BLOOD 19 mg/dL (9-23)
[2023-07-24] MEDS: BLOOD SUGAR DIAGNOSTIC STRIP TEST SCH ×4 (07:20→20:30)
[2023-07-24 08:00] VITALS: BP 121/65; PULSE 110; RESP 20; TEMP 95.6
[2023-07-24] MEDS: CALCIUM ACETATE 667MG CAPSULE PO SCH ×3 (08:31→18:28)
[2023-07-24] MEDS ORDERED: POTASSIUM CHLORIDE 20MEQ TABLET SR PO NR (09:00)
[2023-07-24] MEDS: INSULIN GLARGINE 100 UNITS/ML SUBCUT SCH ×2 (10:45→22:22)
[2023-07-24 12:00] VITALS: BP 120/56; PULSE 109; RESP 21; TEMP 95.7
[2023-07-24] MEDS: INSULIN LISPRO 100 UNITS/ML SUBCUT SCH ×3 (12:50→20:41)
[2023-07-24 14:59] LABS: ANISOCYTOSIS 1+; PLATELET ESTIMATE NORMAL
[2023-07-24 20:00] VITALS: BP 115/55; PULSE 108; RESP 20; TEMP 98.8
[2023-07-25] VITALS: BP 119/66; PULSE 118; RESP 20; TEMP 98.9
[2023-07-25 04:00] VITALS: BP 122/65; PULSE 118; RESP 18; TEMP 98.8
[2023-07-25 07:06] LABS: BASOPHILS % 0.3 % (0.0-2.0); EOSINOPHILS % 0.4 % (0.0-5.0); HEMATOCRIT. 24.6 % (42.0-52.0); HEMOGLOBIN. 7.9 g/dL (14.0-18.0); LYMPHOCYTES % 8.7 % (20.0-50.0); MEAN CORPUSCULAR HEMOGLOBIN 27.6 pg (28.0-32.0); MEAN CORPUSCULAR VOLUME 86.2 fL (80.0-94.0); MEAN PLATELET VOLUME 9.1 fl (7.4-10.4); MONOCYTES % 8.5 % (2.0-8.0); NEUTROPHILS % 82.1 % (40.0-76.0); PLATELET 314 x1000/uL (130-400); RED BLOOD CELL COUNT 2.85 mill/uL (4.7-6.1); RED CELL DISTRIBUTION WIDTH 17.8 % (11.6-14.6); WHITE BLOOD COUNT 13.9 x1000/uL (4.5-11.0)
[2023-07-25] MEDS: BLOOD SUGAR DIAGNOSTIC STRIP TEST SCH ×4 (07:20→21:00)
[2023-07-25] MEDS: INSULIN LISPRO 100 UNITS/ML SUBCUT SCH ×4 (07:50→21:00)
[2023-07-25 08:00] VITALS: BP 112/63; PULSE 116; RESP 20; TEMP 95.9
[2023-07-25] MEDS: CALCIUM ACETATE 667MG CAPSULE PO SCH ×3 (08:42→18:19)
[2023-07-25 08:57] LABS: CALCIUM 8.4 mg/dL (8.7-10.4); CARBON DIOXIDE 28 mEq/L (21-32); CHLORIDE 106 mEq/L (98-107); CREATININE 0.5 mg/dL (0.6-1.3); GLUCOSE 99 mg/dL (70-105); SODIUM 140 mEq/L (136-145); UREA NITROGEN BLOOD 16 mg/dL (9-23)
[2023-07-25] MEDS: INSULIN GLARGINE 100 UNITS/ML SUBCUT SCH ×2 (10:01→22:00)
[2023-07-25 12:00] VITALS: BP 118/76; PULSE 110; RESP 20; TEMP 95.7
[2023-07-25 20:00] VITALS: BP 108/58; PULSE 126; RESP 18; TEMP 101.8
[2023-07-26] VITALS: BP 109/60; PULSE 121; RESP 19; TEMP 101.8
[2023-07-26 04:00] VITALS: BP 114/61; PULSE 88; RESP 18; TEMP 99.7
[2023-07-26] MEDS: BLOOD SUGAR DIAGNOSTIC STRIP TEST SCH ×4 (06:55→21:00)
[2023-07-26] MEDS: INSULIN LISPRO 100 UNITS/ML SUBCUT SCH ×4 (06:56→21:00)
[2023-07-26] MEDS: CALCIUM ACETATE 667MG CAPSULE PO SCH ×3 (07:50→18:01)
[2023-07-26 08:00] VITALS: BP 111/65; PULSE 129; RESP 20; TEMP 100
[2023-07-26] MEDS: MENTHOL/LANOLIN/CALAMINE/ZN OX OINT 71GM TOP SCH ×2 (09:00→17:00)
[2023-07-26] MEDS: INSULIN GLARGINE 100 UNITS/ML SUBCUT SCH ×2 (10:20→22:00)
[2023-07-26 12:00] VITALS: BP 101/52; PULSE 121; RESP 19; TEMP 98.6
[2023-07-26 20:00] VITALS: BP 108/65; PULSE 80; RESP 18; TEMP 102.2
[2023-07-26] MEDS: ACETAMINOPHEN 325MG TABLET PO PRN (22:03)
[2023-07-27] VITALS: BP 101/55; PULSE 71; RESP 18; TEMP 98.8
[2023-07-27 04:00] VITALS: BP 101/54; PULSE 69; RESP 18; TEMP 98.4
[2023-07-27 07:14] LABS: BASOPHILS % 0.2 % (0.0-2.0); EOSINOPHILS % 0.4 % (0.0-5.0); HEMATOCRIT. 24.6 % (42.0-52.0); LYMPHOCYTES % 8.1 % (20.0-50.0); MEAN CORPUSCULAR HEMOGLOBIN 27.3 pg (28.0-32.0); MEAN CORPUSCULAR HGB CONC 32.4 g/dL (31.0-37.0); MEAN CORPUSCULAR VOLUME 84.2 fL (80.0-94.0); MEAN PLATELET VOLUME 9.6 fl (7.4-10.4); MONOCYTES % 6.1 % (2.0-8.0); NEUTROPHILS % 85.2 % (40.0-76.0); PLATELET 319 x1000/uL (130-400); RED BLOOD CELL COUNT 2.92 mill/uL (4.7-6.1); RED CELL DISTRIBUTION WIDTH 18.1 % (11.6-14.6)
[2023-07-27] MEDS: BLOOD SUGAR DIAGNOSTIC STRIP TEST SCH ×4 (07:20→20:37)
[2023-07-27] MEDS: INSULIN LISPRO 100 UNITS/ML SUBCUT SCH ×4 (07:50→20:37)
[2023-07-27 08:00] VITALS: BP 110/56; PULSE 131; RESP 19; TEMP 100.4
[2023-07-27 08:23] LABS: CALCIUM 8.7 mg/dL (8.7-10.4); CARBON DIOXIDE 27 mEq/L (21-32); CHLORIDE 102 mEq/L (98-107); CREATININE 0.4 mg/dL (0.6-1.3); GLUCOSE 108 mg/dL (70-105); SODIUM 135 mEq/L (136-145); UREA NITROGEN BLOOD 23 mg/dL (9-23)
[2023-07-27] MEDS: MENTHOL/LANOLIN/CALAMINE/ZN OX OINT 71GM TOP SCH ×2 (09:00→17:00)
[2023-07-27] MEDS: CALCIUM ACETATE 667MG CAPSULE PO SCH ×2 (09:39→17:41)
[2023-07-27] MEDS: INSULIN GLARGINE 100 UNITS/ML SUBCUT SCH ×2 (10:43→22:34)
[2023-07-27] MEDS: ACETAMINOPHEN 325MG TABLET PO PRN ×2 (11:28→20:35)
[2023-07-27 12:00] VITALS: BP 111/56; PULSE 131; RESP 20; TEMP 100.2
[2023-07-27] MEDS ORDERED: DIATR MEGLU/DIATRIZOATE SOLN 30ML PO NR (12:15)
[2023-07-27] MEDS ORDERED: LIDOCAINE HCL 1% 10 MG/ML 10ML VIAL ONE (13:23)
[2023-07-27] MEDS ORDERED: FENTANYL CITRATE/PF 50MCG/ML 2ML VIAL ONE (13:23)
[2023-07-27] MEDS ORDERED: IOHEXOL-300 100 ML BOTTLE ONE (14:15)
[2023-07-27 16:00] VITALS: BP 116/57; PULSE 114; RESP 20; TEMP 98.8
[2023-07-27] MEDS: PIPERACILLIN/TAZOBACTAM 3.375 G in DEXTROSE 5% WATER 50 ML IV SCH ×2 (17:20→22:39)
[2023-07-27 19:31] LABS: INR 1.3; PARTIAL THROMBOPLASTIN TIME 30.6 sec (23.4-31.0); PROTHROMBIN TIME 13.7 sec (9.6-11.0)
[2023-07-27 20:00] VITALS: BP 119/57; PULSE 127; RESP 20; TEMP 101.7
[2023-07-28] VITALS (7 sets, daily range): BP systolic 104–118; BP diastolic 56–66; PULSE 113–124; RESP 18–22; TEMP 96–98.5
[2023-07-28] MEDS: PIPERACILLIN/TAZOBACTAM 3.375 G in DEXTROSE 5% WATER 50 ML IV SCH ×3 (06:04→21:41)
[2023-07-28] MEDS: INSULIN LISPRO 100 UNITS/ML SUBCUT SCH ×4 (07:50→21:00)
[2023-07-28] MEDS: BLOOD SUGAR DIAGNOSTIC STRIP TEST SCH ×4 (08:12→21:49)
[2023-07-28] MEDS: MENTHOL/LANOLIN/CALAMINE/ZN OX OINT 71GM TOP SCH ×2 (09:00→17:00)
[2023-07-28] MEDS: CALCIUM ACETATE 667MG CAPSULE PO SCH ×3 (09:02→17:50)
[2023-07-28] MEDS: ACETAMINOPHEN 325MG TABLET PO PRN (14:24)
[2023-07-28 17:56] LABS: BASOPHILS % 0.4 % (0.0-2.0); EOSINOPHILS % 0.2 % (0.0-5.0); HEMOGLOBIN. 7.4 g/dL (14.0-18.0); LYMPHOCYTES % 7.5 % (20.0-50.0); MEAN CORPUSCULAR HEMOGLOBIN 26.5 pg (28.0-32.0); MEAN CORPUSCULAR HGB CONC 30.7 g/dL (31.0-37.0); MEAN CORPUSCULAR VOLUME 86.4 fL (80.0-94.0); MEAN PLATELET VOLUME 9.2 fl (7.4-10.4); MONOCYTES % 8.1 % (2.0-8.0); NEUTROPHILS % 83.8 % (40.0-76.0); PLATELET 361 x1000/uL (130-400); RED BLOOD CELL COUNT 2.78 mill/uL (4.7-6.1); RED CELL DISTRIBUTION WIDTH 17.8 % (11.6-14.6); WHITE BLOOD COUNT 12.6 x1000/uL (4.5-11.0)
[2023-07-28 18:19] LABS: CALCIUM 8.8 mg/dL (8.7-10.4); CARBON DIOXIDE 27 mEq/L (21-32); CHLORIDE 101 mEq/L (98-107); CREATININE 0.4 mg/dL (0.6-1.3); GLUCOSE 106 mg/dL (70-105); POTASSIUM 3.7 mEq/L (3.5-5.1); SODIUM 135 mEq/L (136-145); UREA NITROGEN BLOOD 22 mg/dL (9-23)
[2023-07-29] VITALS: BP 112/66; PULSE 117; RESP 19; TEMP 97.8
[2023-07-29 04:00] VITALS: BP 114/67; PULSE 117; RESP 18; TEMP 100.7
[2023-07-29] MEDS: PIPERACILLIN/TAZOBACTAM 3.375 G in DEXTROSE 5% WATER 50 ML IV SCH ×3 (05:31→22:34)
[2023-07-29] MEDS: ACETAMINOPHEN 325MG TABLET PO PRN (05:38)
[2023-07-29] MEDS: BLOOD SUGAR DIAGNOSTIC STRIP TEST SCH ×4 (07:48→22:28)
[2023-07-29] MEDS: INSULIN LISPRO 100 UNITS/ML SUBCUT SCH ×4 (07:50→22:34)
[2023-07-29] MEDS: CALCIUM ACETATE 667MG CAPSULE PO SCH ×3 (07:59→17:57)
[2023-07-29 08:00] VITALS: BP 111/63; PULSE 116; RESP 20; TEMP 98.1
[2023-07-29] MEDS: MENTHOL/LANOLIN/CALAMINE/ZN OX OINT 71GM TOP SCH ×2 (09:00→17:00)
[2023-07-29 12:00] VITALS: BP 113/60; PULSE 111; RESP 18; TEMP 98.1
[2023-07-29 16:00] VITALS: BP 112/60; PULSE 121; RESP 18; TEMP 98.8
[2023-07-29 16:39] LABS: HEMATOCRIT. 23.1 % (42.0-52.0); HEMOGLOBIN. 7.3 g/dL (14.0-18.0); MEAN CORPUSCULAR HEMOGLOBIN 27.2 pg (28.0-32.0); MEAN CORPUSCULAR HGB CONC 31.5 g/dL (31.0-37.0); MEAN CORPUSCULAR VOLUME 86.3 fL (80.0-94.0); PLATELET 330 x1000/uL (130-400); RED BLOOD CELL COUNT 2.67 mill/uL (4.7-6.1); WHITE BLOOD COUNT 12.3 x1000/uL (4.5-11.0)
[2023-07-29 16:44] LABS: DIFFERENTIAL COMMENT 1
[2023-07-29 17:16] LABS: CALCIUM 8.7 mg/dL (8.7-10.4); CARBON DIOXIDE 29 mEq/L (21-32); CHLORIDE 103 mEq/L (98-107); CREATININE 0.4 mg/dL (0.6-1.3); GLUCOSE 124 mg/dL (70-105); PHOSPHORUS 3.7 mg/dL (2.5-4.9); POTASSIUM 3.5 mEq/L (3.5-5.1); SODIUM 138 mEq/L (136-145); UREA NITROGEN BLOOD 14 mg/dL (9-23)
[2023-07-29 17:42] LABS: ANISOCYTOSIS 1+; PLATELET ESTIMATE NORMAL
[2023-07-29 20:00] VITALS: BP 120/63; PULSE 110; RESP 18; TEMP 98.9
[2023-07-30] VITALS (11 sets, daily range): BP systolic 100–125; BP diastolic 40–73; PULSE 112–122; RESP 16–20; TEMP 95.9–100.2
[2023-07-30] MEDS: PIPERACILLIN/TAZOBACTAM 3.375 G in DEXTROSE 5% WATER 50 ML IV SCH ×3 (05:49→22:32)
[2023-07-30] MEDS: BLOOD SUGAR DIAGNOSTIC STRIP TEST SCH ×4 (06:51→21:00)
[2023-07-30 07:21] LABS: BASOPHILS % 0.8 % (0.0-2.0); EOSINOPHILS % 0.6 % (0.0-5.0); HEMATOCRIT. 21.4 % (42.0-52.0); LYMPHOCYTES % 10.4 % (20.0-50.0); MEAN CORPUSCULAR HEMOGLOBIN 27.5 pg (28.0-32.0); MEAN CORPUSCULAR HGB CONC 32.6 g/dL (31.0-37.0); MEAN CORPUSCULAR VOLUME 84.5 fL (80.0-94.0); MEAN PLATELET VOLUME 8.6 fl (7.4-10.4); NEUTROPHILS % 78.2 % (40.0-76.0); PLATELET 343 x1000/uL (130-400); RED BLOOD CELL COUNT 2.53 mill/uL (4.7-6.1); RED CELL DISTRIBUTION WIDTH 17.7 % (11.6-14.6); WHITE BLOOD COUNT 9.4 x1000/uL (4.5-11.0)
[2023-07-30 07:32] LABS: CALCIUM 8.7 mg/dL (8.7-10.4); CARBON DIOXIDE 29 mEq/L (21-32); CHLORIDE 104 mEq/L (98-107); CREATININE 0.3 mg/dL (0.6-1.3); GLUCOSE 102 mg/dL (70-105); POTASSIUM 3.4 mEq/L (3.5-5.1); SODIUM 139 mEq/L (136-145); UREA NITROGEN BLOOD 11 mg/dL (9-23)
[2023-07-30] MEDS: INSULIN LISPRO 100 UNITS/ML SUBCUT SCH ×4 (07:50→21:00)
[2023-07-30] MEDS: MENTHOL/LANOLIN/CALAMINE/ZN OX OINT 71GM TOP SCH ×2 (09:00→17:00)
[2023-07-30] MEDS: CALCIUM ACETATE 667MG CAPSULE PO SCH ×3 (09:13→17:50)
[2023-07-30 11:02] LABS: IRON 19 ug/dL (65-175); TOTAL IRON BINDING CAPACITY 172 ug/dl (250-425)
[2023-07-30] MEDS: ACETAMINOPHEN 325MG TABLET PO PRN (20:01)
[2023-07-31] VITALS: BP 113/63; PULSE 112; RESP 18; TEMP 99.9
[2023-07-31 01:42] LABS: BASOPHILS % 0.5 % (0.0-2.0); EOSINOPHILS % 0.7 % (0.0-5.0); HEMATOCRIT. 26.5 % (42.0-52.0); HEMOGLOBIN. 8.5 g/dL (14.0-18.0); LYMPHOCYTES % 13.3 % (20.0-50.0); MEAN CORPUSCULAR HEMOGLOBIN 27.4 pg (28.0-32.0); MEAN CORPUSCULAR VOLUME 85.5 fL (80.0-94.0); MEAN PLATELET VOLUME 8.4 fl (7.4-10.4); MONOCYTES % 9.7 % (2.0-8.0); NEUTROPHILS % 75.8 % (40.0-76.0); PLATELET 325 x1000/uL (130-400); RED CELL DISTRIBUTION WIDTH 17.5 % (11.6-14.6); WHITE BLOOD COUNT 9.1 x1000/uL (4.5-11.0)
[2023-07-31 04:00] VITALS: BP 113/67; PULSE 110; RESP 19; TEMP 97.9
[2023-07-31] MEDS: PIPERACILLIN/TAZOBACTAM 3.375 G in DEXTROSE 5% WATER 50 ML IV SCH (06:00)
[2023-07-31] MEDS: BLOOD SUGAR DIAGNOSTIC STRIP TEST SCH (07:17)
[2023-07-31] MEDS: INSULIN LISPRO 100 UNITS/ML SUBCUT SCH (07:50)
[2023-07-31] MEDS: CALCIUM ACETATE 667MG CAPSULE PO SCH ×2 (08:59→12:47)
[2023-07-31] MEDS: MENTHOL/LANOLIN/CALAMINE/ZN OX OINT 71GM TOP SCH (09:00)
[2023-07-31] MEDS: ACETAMINOPHEN 325MG TABLET PO PRN (11:54)
[2023-07-31 12:00] VITALS: BP 109/66; PULSE 120; RESP 18; TEMP 96.7
[2023-07-31 13:01] LABS: BASOPHILS % 0.7 % (0.0-2.0); EOSINOPHILS % 0.5 % (0.0-5.0); HEMATOCRIT. 26.9 % (42.0-52.0); HEMOGLOBIN. 8.7 g/dL (14.0-18.0); LYMPHOCYTES % 10.1 % (20.0-50.0); MEAN CORPUSCULAR HEMOGLOBIN 27.2 pg (28.0-32.0); MEAN CORPUSCULAR HGB CONC 32.3 g/dL (31.0-37.0); MEAN CORPUSCULAR VOLUME 84.4 fL (80.0-94.0); MEAN PLATELET VOLUME 8.6 fl (7.4-10.4); MONOCYTES % 7.8 % (2.0-8.0); NEUTROPHILS % 80.9 % (40.0-76.0); PLATELET 340 x1000/uL (130-400); RED BLOOD CELL COUNT 3.19 mill/uL (4.7-6.1); RED CELL DISTRIBUTION WIDTH 17.7 % (11.6-14.6)
[2023-07-31 13:20] LABS: CALCIUM 8.7 mg/dL (8.7-10.4); CARBON DIOXIDE 28 mEq/L (21-32); CHLORIDE 103 mEq/L (98-107); CREATININE 0.4 mg/dL (0.6-1.3); GLUCOSE 123 mg/dL (70-105); POTASSIUM 3.6 mEq/L (3.5-5.1); SODIUM 138 mEq/L (136-145); UREA NITROGEN BLOOD 17 mg/dL (9-23)
[2023-07-31 16:00] VITALS: BP 118/64; PULSE 114; RESP 18; TEMP 97.6
== END 2023-07-31 17:48 | disposition left against medical advice (07) | DRG 853 ==
LOC: ER 14:33 → MICUSO 21:55 → EDBEDREQ 23:21 → 5EST 06-14 13:34 → 7WST 06-15 15:08 → 6EST 06-24 12:00 → 3WST 06-24 16:30 → CVICU 06-24 20:28 → 3WST 07-01 15:11 → CVICU 07-01 15:34 → 5EST 07-04 04:30 → 6EST 07-12 17:35
PROVIDERS: ADMIT Internal Medicine; ATTEND Internal Medicine
PROC: 0D9E8ZX Drainage of Large Intestine, Via Natural or Artificial Opening Endoscopic, Diagnostic (ICD-10-PCS; 2023-06-18)
PROC: 02HV33Z Insertion of Infusion Device into Superior Vena Cava, Percutaneous Approach (ICD-10-PCS; 2023-06-19)
PROC: 5A1945Z Respiratory Ventilation, 24-96 Consecutive Hours (ICD-10-PCS; principal; 2023-06-25)
PROC: 0BH17EZ Insertion of Endotracheal Airway into Trachea, Via Natural or Artificial Opening (ICD-10-PCS; 2023-06-25)
PROC: 0DTN0ZZ Resection of Sigmoid Colon, Open Approach (ICD-10-PCS; 2023-06-25)
PROC: 30233N1 Transfusion of Nonautologous Red Blood Cells into Peripheral Vein, Percutaneous Approach (ICD-10-PCS; 2023-06-26)
PROC: 05H633Z Insertion of Infusion Device into Left Subclavian Vein, Percutaneous Approach (ICD-10-PCS; 2023-06-26)
PROC: B547ZZA Ultrasonography of Left Subclavian Vein, Guidance (ICD-10-PCS; 2023-06-26)
PROC: 009U3ZZ Drainage of Spinal Canal, Percutaneous Approach (ICD-10-PCS; 2023-07-10)
PROC: B01BYZZ Fluoroscopy of Spinal Cord using Other Contrast (ICD-10-PCS; 2023-07-10)
DX: A41.9 Sepsis, unspecified organism (principal); G82.50 Quadriplegia, unspecified; J18.9 Pneumonia, unspecified organism; R65.21 Severe sepsis with septic shock; K65.9 Peritonitis, unspecified; J96.21 Acute and chronic respiratory failure with hypoxia; N17.0 Acute kidney failure with tubular necrosis; G93.41 Metabolic encephalopathy; K63.2 Fistula of intestine; E87.4 Mixed disorder of acid-base balance; K57.20 Diverticulitis of large intestine with perforation and abscess without bleeding; M62.82 Rhabdomyolysis; J90 Pleural effusion, not elsewhere classified; I50.30 Unspecified diastolic (congestive) heart failure; I13.0 Hypertensive heart and chronic kidney disease with heart failure and stage 1 through stage 4 chronic kidney disease, or unspecified chronic kidney disease; E11.65 Type 2 diabetes mellitus with hyperglycemia; N18.9 Chronic kidney disease, unspecified; E66.01 Morbid (severe) obesity due to excess calories; B96.20 Unspecified Escherichia coli [E. coli] as the cause of diseases classified elsewhere; D50.9 Iron deficiency anemia, unspecified; E11.22 Type 2 diabetes mellitus with diabetic chronic kidney disease; L89.159 Pressure ulcer of sacral region, unspecified stage; E83.39 Other disorders of phosphorus metabolism; E83.51 Hypocalcemia; E87.5 Hyperkalemia; E88.09 Other disorders of plasma-protein metabolism, not elsewhere classified; G47.33 Obstructive sleep apnea (adult) (pediatric); K52.9 Noninfective gastroenteritis and colitis, unspecified; Z68.38 Body mass index [BMI] 38.0-38.9, adult; Z78.1 Physical restraint status; Z90.49 Acquired absence of other specified parts of digestive tract; Z93.3 Colostomy status
CPT/HCPCS: 36415; 36556; 36573; 36598; 36600; 62328; 71045; 71275; 72128; 72131; 74176; 74177; 74178; 76770; 76937; 76942; 77012; 80048; 80053; 80305; 81003; 82010; 82040; 82140; 82248; 82270; 82330; 82375; 82550; 82607; 82728; 82746; 82805; 82945; 82962; 83036; 83540; 83550; 83605; 83735; 83916; 84100; 84132; 84134; 84145; 84157; 84439; 84443; 84478; 84481; 85014; 85018; 85025; 85044; 85049; 85384; 86635; 86705; 86706; 86709; 86803; 86850; 86900; 86920; 87070; 87077; 87116; 87186; 87252; 87340; 87529; 87899; 88305; 88307; 90935; 92610; 93005; 93306; 93970; 94002; 94003; 97110; 97112; 97162; 97167; 97530; 97535; 99152; 99153; 99285; A4565; A6261; C1725; C1729; C1751; C1752; C1758; C1760; C1769; C1887; C1892; C1893; C9113; J0295; J0456; J0610; J0692; J1120; J1642; J1644; J1650; J1815; J2185; J2248; J2250; J2270; J2370; J2405; J2543; J2704; J2765; J3010; J3370; J3411; J3490; J7030; J7050; J7060; L8514; P9016; P9041; P9047; Q9963; Q9967; G0500